=== PATIENT | female | born 1950 | race Caucasian/White ===

== ENCOUNTER 2020-03-26 01:09 | Emergency (ER) | payer MEDICARE, OTHER ==
[~2020-03-26] VITALS: Ht 160 cm; Wt 65.7 kg
[2020-03-26] MEDS ORDERED: LACTATED RINGERS 1,000 ML IV ONE (01:27)
[2020-03-26] MEDS ORDERED: ANTACID SUSP 30 ML UDC (MYLANTA) PO ONE (01:30)
[2020-03-26] MEDS ORDERED: ONDANSETRON 4 MG/2 ML (SDV) Z0FRAN IVP ONE (01:30)
[2020-03-26] MEDS ORDERED: FAMOTIDINE 20MG/2ML IV (PEPCID) IVP ONE (01:30)
[2020-03-26] MEDS ORDERED: LIDOCAINE 2% VISCOUS 15 ML UDC PO ONE (01:30)
[2020-03-26 01:39] LABS: BASOPHILS % (AUTO) 0 % (0-10); EOSINOPHILS % (AUTO) 0 % (0-10); HEMATOCRIT 44 % (35-52); HEMOGLOBIN 14.9 G/DL (11.5-16.0); LYMPHOCYTES # (AUTO) 1.4 X 10^3 (1.0-4.0); LYMPHOCYTES % (AUTO) 15 % (12-44); MEAN CORPUSCULAR HEMOGLOBIN 30 PG (25-34); MEAN CORPUSCULAR HGB CONC 34 G/DL (32-36); MEAN CORPUSCULAR VOLUME 88 FL (80-99); MEAN PLATELET VOLUME 10.3 FL (7.4-10.4); MONOCYTES # (AUTO) 0.4 X 10^3 (0.0-1.0); MONOCYTES % (AUTO) 4 % (0-12); NEUTROPHILS # (AUTO) 7.5 X 10^3 (1.8-7.8); NEUTROPHILS % (AUTO) 81 % (42-75); PLATELET COUNT 307 10^3/uL (130-400); RED CELL DISTRIBUTION WIDTH 13.5 % (10.0-14.5); WHITE BLOOD COUNT 9.3 10^3/uL (4.3-11.0)
[2020-03-26 01:52] LABS: ALBUMIN 4.5 GM/DL (3.2-4.5); POTASSIUM 3.9 MMOL/L (3.6-5.0)
[2020-03-26 01:53] LABS: CALCIUM 10.7 MG/DL (8.5-10.1)
[2020-03-26 01:54] LABS: TOTAL PROTEIN 8.5 GM/DL (6.4-8.2)
[2020-03-26 01:56] LABS: BILIRUBIN,TOTAL 0.6 MG/DL (0.1-1.0)
[2020-03-26 01:58] LABS: CREATININE SERUM 1.14 MG/DL (0.60-1.30)
[2020-03-26] MEDS ORDERED: NS IV 1000 ML 1,000 ML IV SCH (02:31)
[2020-03-26 03:32] LABS: BILIRUBIN,URINE NEGATIVE (NEGATIVE); COLOR,URINE YELLOW; GLUCOSE, URINE (UA) 1+ (NEGATIVE); KETONES,URINE 1+ (NEGATIVE); LEUKOCYTE ESTERASE ,URINE TRACE (NEGATIVE); NITRITE,URINE NEGATIVE (NEGATIVE); PH,URINE 7.5 (5-9); PROTEIN,URINE TRACE (NEGATIVE)
[2020-03-26 03:42] LABS: AMORPHOUS SEDIMENT,UR LARGE AMOR PHOSPHATE /LPF; BACTERIA,URINE NEGATIVE /HPF; CLARITY,URINE SL CLOUDY; WBC,URINE RARE /HPF
[2020-03-26] MEDS ORDERED: ONDA4TAB11 SL (03:56)
--- NOTE | 2020-03-26 03:57 | ED Abdominal Pain ---
General Chief Complaint: Abdominal/GI Problems Stated Complaint: N/V, ABD PAIN Sepsis Screen: No Definite Risk Source of Information: Patient Exam Limitations: No Limitations History of Present Illness Date Seen by Provider: March 26, 2020 Time Seen by Provider: 01:25 Initial Comments This 70-year-old woman presents to the emergency room with complaints of epigastric pain and vomiting. She vomited numerous times at home starting in the afternoon. She has not tried eat or drink since 19:00. She denies any fever. She had a normal bowel movement in the morning. She denies any constipation or diarrhea. Allergies and Home Medications Allergies Coded Allergies: No Known Drug Allergies (Unverified , 03/26/20) Home Medications Ondansetron 4 Mg Tab.rapdis, 4 MG SL Q4H PRN for NAUSEA/VOMITING Prescribed by: DIANE MARTINO on 03/26/20 0356 Patient Home Medication List Home Medication List Reviewed: Yes Review of Systems Review of Systems Constitutional: no symptoms reported EENTM: No Symptoms Reported Respiratory: No Symptoms Reported Cardiovascular: No Symptoms Reported Gastrointestinal: See HPI Genitourinary: No Symptoms Reported Musculoskeletal: no symptoms reported Skin: no symptoms reported Psychiatric/Neurological: No Symptoms Reported Endocrine: No Symptoms Reported Hematologic/Lymphatic: No Symptoms Reported Past Snjjors-Dfhmib-Ivvbsi Hx Past Med/Social Hx: Reviewed Nursing Past Med/Soc Hx Patient Social History Alcohol Use: Denies Use Recreational Drug Use: No Smoking Status: Never a Smoker Recent Foreign Travel: No Contact w/Someone Who Travel: No Recent Infectious Disease Expo: No Recent Hopitalizations: No Physical Abuse: No Sexual Abuse: No Mistreated: No Fear: No Immunizations Up To Date PED Vaccines UTD: Yes Seasonal Allergies Seasonal Allergies: No Past Medical History Surgeries: Yes Orthopedic, Tonsillectomy Respiratory: No Cardiac: No 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 oz. 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, no motor/sensory deficits, alert, normal mood/affect, oriented x 3 Skin: normal color, warm/dry Progress/Results/Core Measures Results/Orders Lab Results Laboratory Tests Test 03/26/20 01:31 03/26/20 03:23 Range/Units White Blood Count 9.3 4.3-11.0 10^3/uL Red Blood Count 5.04 4.35-5.85 10^6/uL Hemoglobin 14.9 11.5-16.0 G/DL Hematocrit 44 35-52 % Mean Corpuscular Volume 88 80-99 FL Mean Corpuscular Hemoglobin 30 25-34 PG Mean Corpuscular Hemoglobin Concent 34 32-36 G/DL Red Cell Distribution Width 13.5 10.0-14.5 % Platelet Count 307 130-400 10^3/uL Mean Platelet Volume 10.3 7.4-10.4 FL Neutrophils (%) (Auto) 81 H 42-75 % Lymphocytes (%) (Auto) 15 12-44 % Monocytes (%) (Auto) 4 0-12 % Eosinophils (%) (Auto) 0 0-10 % Basophils (%) (Auto) 0 0-10 % Neutrophils # (Auto) 7.5 1.8-7.8 X 10^3 Lymphocytes # (Auto) 1.4 1.0-4.0 X 10^3 Monocytes # (Auto) 0.4 0.0-1.0 X 10^3 Eosinophils # (Auto) 0.0 0.0-0.3 10^3/uL Basophils # (Auto) 0.0 0.0-0.1 10^3/uL Sodium Level 138 135-145 MMOL/L Potassium Level 3.9 3.6-5.0 MMOL/L Chloride Level 101 98-107 MMOL/L Carbon Dioxide Level 21 21-32 MMOL/L Anion Gap 16 H 5-14 MMOL/L Blood Urea Nitrogen 16 7-18 MG/DL Creatinine 1.14 0.60-1.30 MG/DL Estimat Glomerular Filtration Rate 47 BUN/Creatinine Ratio 14 Glucose Level 215 H 70-105 MG/DL Calcium Level 10.7 H 8.5-10.1 MG/DL Corrected Calcium 10.3 H 8.5-10.1 MG/DL Total Bilirubin 0.6 0.1-1.0 MG/DL Aspartate Amino Transf (AST/SGOT) 21 5-34 U/L Alanine Aminotransferase (ALT/SGPT) 21 0-55 U/L Alkaline Phosphatase 93 40-136 U/L C-Reactive Protein High Sensitivity 0.23 0.00-0.50 MG/DL Total Protein 8.5 H 6.4-8.2 GM/DL Albumin 4.5 3.2-4.5 GM/DL Lipase 23 8-78 U/L Urine Color YELLOW Urine Clarity SL CLOUDY Urine pH 7.5 5-9 Urine Specific [place] 1.020 1.016-1.022 Urine Protein TRACE H NEGATIVE Urine Glucose (UA) 1+ H NEGATIVE Urine Ketones 1+ H NEGATIVE Urine Nitrite NEGATIVE NEGATIVE Urine Bilirubin NEGATIVE NEGATIVE Urine Urobilinogen 1.0 < = 1.0 MG/DL Urine Leukocyte Esterase TRACE H NEGATIVE Urine RBC (Auto) NEGATIVE NEGATIVE Urine RBC NONE /HPF Urine WBC RARE /HPF Urine Squamous Epithelial Cells 5-10 /HPF Urine Crystals PRESENT H /LPF Urine Amorphous Sediment LARGE DENITA PHOSPHATE H /LPF Urine Bacteria NEGATIVE /HPF Urine Casts NONE /LPF Urine Mucus MODERATE H /LPF Urine Culture Indicated NO My Orders Orders - DIANE WILKINSON MD Ed Iv/Invasive Line Start (03/26/20 01:27) Lactated Ringers (Lr 1000 Ml Iv Solution (03/26/20:27) Cbc With Automated Diff (03/26/20:27) Comprehensive Metabolic Panel (03/26/20:) Hs C Reactive Protein (03/26/20:27) Lipase (03/26/20:27) Ua Culture If Indicated (03/26/20:27) Ondansetron Injection (Zofran Injectio (03/26/20 01:30) Famotidine Injection (Pepcid Injection) (03/26/20 01:30) Lidocaine 2% Viscous 15 Ml (Xylocaine Vi (03/26/20 01:30) Antacid Suspension (Mylanta Suspension (03/26/20 01:30) Ns Iv 1000 Ml (Sodium Chloride 0.9%) (03/26/20 02:31) Rx-Ondansetron Po (Rx-Zofran Po) (03/26/20 04:27) Medications Given in ED Current Medications Medications Dose Ordered Sig/Kemal Route Start Time Stop Time Status Last Admin Dose Admin Al Hydrox/Mg Hydrox/Simethicone 30 ml ONCE ONCE PO 03/26/20 01:30 03/26/20 01:31 DC 03/26/20 01:41 30 ML Famotidine 20 mg ONCE ONCE IVP 03/26/20 01:30 03/26/20 01:31 DC 03/26/20 01:41 20 MG Lactated Ringer's 1,000 ml @ 0 mls/hr Q0M ONCE IV 03/26/20 01:27 03/26/20 01:30 DC 03/26/20 01:41 1,000 MLS/HR Lidocaine HCl 15 ml ONCE ONCE PO 03/26/20 01:30 03/26/20 01:31 DC 03/26/20 01:41 15 ML Ondansetron HCl 8 mg ONCE ONCE IVP 03/26/20 01:30 03/26/20 01:31 DC 03/26/20 01:41 8 MG Vital Signs/I&O 03/26/20 03/26/20 01:31 04:08 Temp 35.4 Pulse 97 84 Resp 20 18 B/P (MAP) 144/86 (105) 147/78 (105) Pulse Ox 99 98 Blood Pressure Mean: 105 Progress Progress Note : Progress Note Patient was treated with Zofran, Pepcid, and 2 L of IV fluid. This was followed by GI cocktail. Her symptoms nearly resolved. Lab workup was unremarkable except for hyperglycemia. This was discussed with the patient and further screening for diabetes was recommended. See discharge instructions. Patient did vomit in the waiting room after discharge despite improvement in symptoms prior to that. She was sent home with a take-home packet of Zofran. Departure Impression Primary Impression: Epigastric pain Additional Impressions: Nausea and vomiting Qualified Codes: R11.2 - Nausea with vomiting, unspecified Hyperglycemia Disposition: HOME, SELF-CARE Condition: Improved Departure-Patient Inst. Decision time for Depature: 03:54 Referrals: CHICO PENA MD (PCP/Family) Primary Care Physician Patient Instructions: Acute Abdomen (Belly Pain), Adult (DC) Add. Discharge Instructions: Adhere to a noncarbonated clear liquid diet for the next 24 hours. Use Zofran (ondansetron) as prescribed for nausea and vomiting. Take an antacid medication such as Pepcid (famotidine) 20 mg twice daily or omeprazole 20 mg daily for the next 1-2 weeks. Your blood sugar was elevated today. Eat a low carbohydrate, low sugar diet until you aren't able to have further screening with Dr. Pena. When you resume eating solid foods, start with bland foods and gradually advance your diet as tolerated. Avoid foods that irritate your stomach as well as fatty or greasy foods. Return to the emergency room if you have worsening symptoms despite following these measures. All discharge instructions reviewed with patient and/or family. Voiced understanding. Scripts Ondansetron (Ondansetron Odt) 4 Mg Tab.rapdis 4 MG SL Q4H PRN for NAUSEA/VOMITING, #10 TAB Prov: DIANE WILKINSON MD 03/26/20 Copy Copies To 1: CHICO PENA MD, JOSHUA T MD March 26, 2020 03:57
[2020-03-26 04:08] VITALS: BP 147/78
[2020-03-26] MEDS ORDERED: RX-ONDANSETRON 4 MG ODT (ZOFRAN) PPK #4 SL STA (04:27)
--- NOTE | 2020-03-26 04:35 | NUR ---
SPOUSE OF PATIENT CAME BACK TO ER REQUESTING A NEW PRINT OUT OF DISCHARGE PAPERWORK BECAUSE PATIENT HAD VOMITED ON HER PAPERWORK ON HER WAY HOME. DR MARTINO INFORMED OF PATIENT CONDITION AND ORDER PLACED FOR TAKE HOME ZOFRAN. SPOUSE INFORMED OF ADDITIONAL COST FOR TAKE HOME MEDICATION, VERBALIZED UNDERSTANDING.
== END 2020-03-26 04:08 | disposition home or self-care (01) ==
LOC: EDUNIT# 01:09 → ER 01:12
DX: R10.13 Epigastric pain (principal); R11.2 Nausea with vomiting, unspecified; R73.9 Hyperglycemia, unspecified
CPT/HCPCS: 36415; 80053; 81000; 83690; 85025; 86141

== ENCOUNTER 2020-03-27 18:05 | Inpatient (IN) | payer MEDICARE ==
[~2020-03-27] VITALS: Ht 160 cm; Wt 70.4 kg
[~2020-03-27 18:05] MED LIST: ONDA4TAB11 SL
[2020-03-27] MEDS: NS IV 1000 ML 1,000 ML IV SCH ×4 (18:35→23:40)
--- NOTE | 2020-03-27 18:35 | ED Abdominal Pain ---
General Stated Complaint: STOMACH PAIN Source of Information: Patient Exam Limitations: No Limitations History of Present Illness Date Seen by Provider: March 27, 2020 Time Seen by Provider: 18:31 Initial Comments 70-year-old female who presents to emergency room with complaints of lower abdominal pain. She was seen and evaluated yesterday in the emergency room for nausea vomiting and abdominal pain that was resolved with a GI cocktail, IV fluids, Zofran. She reports that for the most part the nausea and vomiting has resolved but she continues to have lower abdominal pain. She is concerned that she might be in pain just due to the severe vomiting that she experienced. Timing/Duration: 1-2 Days Severity/Quality: Cramping Location: RLQ, LLQ Associated Symptoms: Nausea/Vomiting Allergies and Home Medications Allergies Coded Allergies: No Known Drug Allergies (Unverified , 03/26/20) Home Medications Ondansetron 4 Mg Tab.rapdis, 4 MG SL Q4H PRN for NAUSEA/VOMITING Prescribed by: DIANE MARTINO on 03/26/20 0356 Patient Home Medication List Home Medication List Reviewed: Yes Review of Systems Review of Systems Constitutional: see HPI; No chills, No fever Gastrointestinal: See HPI, Abdominal Pain All Other Systems Reviewed Negative Unless Noted: Yes Past Sgvkdpd-Rgjasp-Ejqnlz Hx Past Med/Social Hx: Reviewed Nursing Past Med/Soc Hx Patient Social History Recent Foreign Travel: No Contact w/Someone Who Travel: No Recent Hopitalizations: No Immunizations Up To Date PED Vaccines UTD: Yes Seasonal Allergies Seasonal Allergies: No Past Medical History Surgeries: Yes Orthopedic, Tonsillectomy Respiratory: No Cardiac: No 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 oz. kg; 25.00 BMI Method: General Appearance: WD/WN, no apparent distress Respiratory: chest non-tender, lungs clear, normal breath sounds, no respiratory distress, no accessory muscle use Cardiovascular: normal peripheral pulses, regular rate, rhythm, no edema, no gallop, no JVD, no murmur Gastrointestinal: normal bowel sounds, soft, no organomegaly, no pulsatile mass, tenderness (right and left lower quadrant tenderness) Extremities: normal capillary refill Neurologic/Psychiatric: alert, normal mood/affect, oriented x 3 Skin: normal color, warm/dry Progress/Results/Core Measures Results/Orders Lab Results Laboratory Tests Test 03/27/20 18:25 Range/Units White Blood Count 10.0 4.3-11.0 10^3/uL Red Blood Count 5.05 4.35-5.85 10^6/uL Hemoglobin 15.0 11.5-16.0 G/DL Hematocrit 45 35-52 % Mean Corpuscular Volume 90 80-99 FL Mean Corpuscular Hemoglobin 30 25-34 PG Mean Corpuscular Hemoglobin Concent 33 32-36 G/DL Red Cell Distribution Width 14.2 10.0-14.5 % Platelet Count 263 130-400 10^3/uL Mean Platelet Volume 10.7 H 7.4-10.4 FL Neutrophils (%) (Auto) 87 H 42-75 % Lymphocytes (%) (Auto) 8 L 12-44 % Monocytes (%) (Auto) 4 0-12 % Eosinophils (%) (Auto) 0 0-10 % Basophils (%) (Auto) 0 0-10 % Neutrophils # (Auto) 8.7 H 1.8-7.8 X 10^3 Lymphocytes # (Auto) 0.8 L 1.0-4.0 X 10^3 Monocytes # (Auto) 0.4 0.0-1.0 X 10^3 Eosinophils # (Auto) 0.0 0.0-0.3 10^3/uL Basophils # (Auto) 0.0 0.0-0.1 10^3/uL Sodium Level 137 135-145 MMOL/L Potassium Level 3.4 L 3.6-5.0 MMOL/L Chloride Level 100 98-107 MMOL/L Carbon Dioxide Level 22 21-32 MMOL/L Anion Gap 15 H 5-14 MMOL/L Blood Urea Nitrogen 21 H 7-18 MG/DL Creatinine 1.10 0.60-1.30 MG/DL Estimat Glomerular Filtration Rate 49 BUN/Creatinine Ratio 19 Glucose Level 184 H 70-105 MG/DL Calcium Level 9.9 8.5-10.1 MG/DL Corrected Calcium 10.0 8.5-10.1 MG/DL Total Bilirubin 1.1 H 0.1-1.0 MG/DL Aspartate Amino Transf (AST/SGOT) 20 5-34 U/L Alanine Aminotransferase (ALT/SGPT) 23 0-55 U/L Alkaline Phosphatase 78 40-136 U/L Total Protein 7.7 6.4-8.2 GM/DL Albumin 3.9 3.2-4.5 GM/DL Amylase Level 22 L 25-125 U/L Lipase 6 L 8-78 U/L My Orders Orders - IRASEMA AMBROSIO Comprehensive Metabolic Panel (03/27/20 18:11) Lipase (03/27/20 18:11) Amylase (03/27/20 18:11) Ua Culture If Indicated (03/27/20 18:11) Ed Iv/Invasive Line Start (03/27/20 18:11) Cbc With Automated Diff (03/27/20 18:11) Ns Iv 1000 Ml (Sodium Chloride 0.9%) (03/27/20 18:30) Ct Abdomen/Pelvis Wo (03/27/20 19:31) Ns Iv 1000 Ml (Sodium Chloride 0.9%) (03/27/20 19:45) Progress Progress Note : Time: 20:15 Progress Note I have seen and evaluated the patient. I've informed her of her laboratory and imaging studies. I've discussed the case with Dr. Chatman at this time and he recommends having the patient be nothing by mouth, NG tube placement, and small bowel follow-through tomorrow. He wants the patient admitted to medical and he will consult. I discussed the case with Dr. Ansari he agrees and recommends having when necessary fentanyl and Zofran. Patient agrees with plan of care. Departure Communication (Admissions) Time/Spoke to Admitting Phy: 20:24 Dr. Ansari Time/Spoke to Consulting Phy: 20:15 Dr. Chatman Impression Primary Impression: Small bowel obstruction Disposition: ADMITTED INPATIENT Condition: Stable Admissions Decision to Admit Reason: Admit from ER (General) Decision to Admit/Date: March 27, 2020 Time/Decision to Admit Time: 20:39 Departure-Patient Inst. Referrals: CHICO KINNEY MD (PCP/Family) Primary Care Physician IRASEMA AMBROSIO March 27, 2020 18:35
[2020-03-27 19:09] LABS: BASOPHILS % (AUTO) 0 % (0-10); EOSINOPHILS % (AUTO) 0 % (0-10); HEMATOCRIT 45 % (35-52); LYMPHOCYTES # (AUTO) 0.8 X 10^3 (1.0-4.0); LYMPHOCYTES % (AUTO) 8 % (12-44); MEAN CORPUSCULAR HEMOGLOBIN 30 PG (25-34); MEAN CORPUSCULAR HGB CONC 33 G/DL (32-36); MEAN CORPUSCULAR VOLUME 90 FL (80-99); MEAN PLATELET VOLUME 10.7 FL (7.4-10.4); MONOCYTES # (AUTO) 0.4 X 10^3 (0.0-1.0); MONOCYTES % (AUTO) 4 % (0-12); NEUTROPHILS # (AUTO) 8.7 X 10^3 (1.8-7.8); NEUTROPHILS % (AUTO) 87 % (42-75); PLATELET COUNT 263 10^3/uL (130-400); RED CELL DISTRIBUTION WIDTH 14.2 % (10.0-14.5)
--- OUTSIDE RECORDS SUMMARY | 2020-03-27 19:14 | XMS REPORT | Continuity of Care Document ---
Author Organization Unknown Address Unknown Phone Unavailable Allergies Active Description Code Type Severity Reaction Onset Reported/Identified Relationship to Patient Clinical Status Yes No Known Drug Allergies [id number] Drug Allergy Unknown N/A 03/26/2020 Medications There is no data. Problems There is no data. Procedures There is no data. Results Test Result Range Complete blood count (CBC) with automate d white blood cell (WBC) differential - 03/26/20 01:31 Blood leukocytes automated count (number/volume) 9.3 10*3/uL 4.3-11.0 Blood erythrocytes automated count (number/volume) 5.04 10*6/uL 4.35-5.85 Venous blood hemoglobin measurement (mass/volume) 14.9 g/dL 11.5-16.0 Blood hematocrit (volume fraction) 44 % 35-52 Automated erythrocyte mean corpuscular volume 88 [ foz_us] 80-99 Automated erythrocyte mean corpuscular h emoglobin (mass per erythrocyte) 30 pg 25-34 Automated erythrocyte mean corpuscular h emoglobin concentration measurement (mass/volume) 34 g/dL 32-36 Automated erythrocyte distribution width ratio 13. 5 % 10.0- 14.5 Automated blood platelet count (count/volume) 307 10*3/uL 130-400 Automated blood platelet mean volume measurement 10.3 [foz_us] 7.4-10.4 Automated blood neutrophils/100 leukocytes 81 % 42-75 Automated blood lymphocytes/100 leukocytes 15 % 12-44 Blood monocytes/100 leukocytes 4 % 0-12 Automated blood eosinophils/100 leukocytes 0 % 0-10 Automated blood basophils/100 leukocytes 0 % 0-10 Blood neutrophils automated count (number/volume) 7.5 10*3 1.8-7.8 Blood lymphocytes automated count (number/volume) 1.4 10*3 1.0-4.0 Blood monocytes automated count (number/volume) 0. 4 10*3 0.0-1.0 Automated eosinophil count 0.0 10*3/uL 0 .0-0.3 Automated blood basophil count (count/volume) 0.0 10*3/uL 0.0-0.1 Comprehensive metabolic panel - 03/26/20 01:31 Serum or plasma sodium measurement (moles/volume) 138 mmol/L 135-145 Serum or plasma potassium measurement (moles/volume) 3.9 mmol/L 3.6-5.0 Serum or plasma chloride measurement (moles/volume) 101 mmol/L 98-107 Carbon dioxide 21 mmol/L 21-32 Serum or plasma anion gap determination (moles/volume) 16 mmol/L 5-14 Serum or plasma urea nitrogen measurement (mass/volume ) 16 mg/dL 7-18 Serum or plasma creatinine measurement (mass/volume) 1.14 mg/dL 0.60-1.30 Serum or plasma urea nitrogen/creatinine mass ratio 14 NRG Serum or plasma creatinine measurement w ith calculation of estimated glomerular filtration rate 47 NRG Serum or plasma glucose measurement (mass/volume) 215 mg/dL 70-105 Serum or plasma calcium measurement (mass/volume) 10.7 mg/dL 8.5-10.1 Serum or plasma total bilirubin measurement (mass/volu me) 0.6 mg/dL 0.1-1.0 Serum or plasma alkaline phosphatase norman surement (enzymatic activity/volume) 93 U/L 40-136 Serum or plasma aspartate aminotransfera se measurement (enzymatic activity/volume) 21 U/L 5-34 Serum or plasma alanine aminotransferase measurement (enzymatic activity/volume) 21 U/L 0-55 Serum or plasma protein measurement (mass/volume) 8.5 g/dL 6.4-8.2 Serum or plasma albumin measurement (mass/volume) 4.5 g/dL 3.2-4.5 CALCIUM CORRECTED 10.3 mg/dL 8.5-10.1 Serum or plasma C reactive protein measu rement (mass/volume) - 03/26/20 01:31 Serum or plasma C reactive protein measurement (mass/v olume) 0.23 mg/dL 0.00-0.50 Lipase - 03/26/20 01:31 Lipase 23 U/L 8-78 Serum or plasma C reactive protein measu rement (mass/volume) - 03/26/20 01:31 Serum or plasma C reactive protein measurement (mass/v olume) 0.23 mg/dL 0.00-0.50 Complete urinalysis with reflex to cultu re - 03/26/20 03:23 Urine color determination YELLOW NRG Urine clarity determination SL CLOUDY N RG Urine pH measurement by test strip 7.5 5-9 Specific gravity of urine by test strip 1.020 1.016-1.022 Urine protein assay by test strip, semi-quantitative TRACE NEGATIVE Urine glucose detection by automated test strip 1+ NEGATIVE Erythrocytes detection in urine sediment by light micr oscopy NEGATIVE NEGATIVE Urine ketones detection by automated test strip 1+ NEGATIVE Urine nitrite detection by test strip NEGATIVE NEGATIVE Urine total bilirubin detection by test strip NEGA TIVE NEGATIVE Urine urobilinogen measurement by automated test strip (mass/volume) 1.0 mg/dL < = 1.0 Urine leukocyte esterase detection by dipstick TRA CE NEGATIVE Automated urine sediment erythrocyte cou nt by microscopy (number/high power field) NONE NRG Automated urine sediment leukocyte count by microscopy (number/high power field) RARE NRG Bacteria detection in urine sediment by light microsco py NEGATIVE NRG Squamous epithelial cells detection in u rine sediment by light microscopy 5-10 NRG Crystals detection in urine sediment by light microsco py PRESENT NRG Casts detection in urine sediment by light microscopy NONE NRG Mucus detection in urine sediment by light microscopy MODERATE NRG Complete urinalysis with reflex to culture NO NRG Amorphous sediment detection in urine sediment by ligh t microscopy LARGE DENITA PHOSPHATE NRG Encounters ACCT No. Visit Date/Time Discharge Status Pt. Type Provider Facility Loc./Unit Complaint [id number] 03/26/2020 01:12:00 020 04:08:00 DIS Emergency MINH CABRERA, DIANE Crook [facility] ER N/V, ABD PAIN [id number] 03/27/2020 18:06:[address] Emergency IRASEMA AMBROSIO [facility] ER STOMACH PAIN
[2020-03-27 19:16] LABS: ALBUMIN 3.9 GM/DL (3.2-4.5); POTASSIUM 3.4 MMOL/L (3.6-5.0)
[2020-03-27 19:18] LABS: CALCIUM 9.9 MG/DL (8.5-10.1)
[2020-03-27 19:19] LABS: TOTAL PROTEIN 7.7 GM/DL (6.4-8.2)
[2020-03-27 19:21] LABS: BILIRUBIN,TOTAL 1.1 MG/DL (0.1-1.0)
[2020-03-27 19:22] LABS: CREATININE SERUM 1.1 MG/DL (0.60-1.30)
[2020-03-27] MEDS ORDERED: NS IV 1000 ML 1,000 ML IV SCH (19:45)
--- NOTE | 2020-03-27 20:03 | Diagnostic Imaging Report ---
PROCEDURE: CT abdomen and pelvis without contrast. TECHNIQUE: Multiple contiguous axial images were obtained through the abdomen and pelvis without the use of intravenous contrast. Auto Exposure Controls were utilized during the CT exam to meet ALARA standards for radiation dose reduction. INDICATION: Abdomen and pelvic pain. Nausea and vomiting. History of hiatal hernia. COMPARISON: None FINDINGS: There is dependent atelectasis in the lung bases. The heart is normal in size. The liver demonstrates a small amount of air which appears to be pneumobilia. The gallbladder is not seen. The spleen is unremarkable. The pancreas appears normal. The adrenal glands appear normal. The kidneys demonstrate no hydronephrosis or obstructing calculi. The small bowel is distended, measuring up to 4 cm. The distal ileum is decompressed however. There appears to be a transition point in the pelvis (image 32 series 601). There is a small amount of free fluid in the abdomen and pelvis. The colon is nearly completely decompressed. There are advanced degenerative changes in the spine with no acute fracture seen. No free air is seen. IMPRESSION: 1. Small bowel distention concerning for high-grade obstruction with transition point suspected in the pelvis. 2. Small amount of ascites. No free air is seen. 3. Small amount of pneumobilia. Dictated by: Dictated on workstation # [id number]
[2020-03-27] MEDS ORDERED: HURRICAINE EXT TUBE (BENZOCAINE) ONE (21:04)
--- OUTSIDE RECORDS SUMMARY | 2020-03-27 21:38 | XMS REPORT | Continuity of Care Document ---
Author Organization Unknown Address Unknown Phone Unavailable Allergies Active Description Code Type Severity Reaction Onset Reported/Identified Relationship to Patient Clinical Status Yes No Known Drug Allergies [id number] Drug Allergy Unknown N/A 03/26/2020 Medications There [...] Status Pt. Type Provider Facility Loc./Unit Complaint [id number] 03/26/2020 01:12:00 020 04:08:00 DIS Emergency MINH CABRERA, DIANE Crook [facility] ER N/V, ABD PAIN [id number] 03/27/2020 21:00:[address] Inpatient FIGUEROA CABRERA, DESIREE Zepeda [facility] 4TH SMALL BOWEL OBSTRUCTION
[2020-03-27] MEDS ORDERED: HURRICAINE EXT TUBE (BENZOCAINE) XX ONE (21:45)
--- NOTE | 2020-03-27 21:50 | NUR ---
DOTTIE GRAHAM admitted to room 416-1, with an admitting diagnosis of small bowel obstruction, on 03/27/20 from ER via , accompanied by sTAFF. DOTTIE GRAHAM introduced to surroundings, call light, bed controls, phone, TV, temperature control, lights, meal times, smoking policy, visitor policy, side rail policy, bathrooms and showers. Patient Rights given to patient in the handbook. DOTTIE GRAHAM verbalizes understanding that [facility] is not responsible for the loss or damage to any personal effects or valuables that are kept in the patients possession during their hospitalization.
[2020-03-27 21:58] VITALS: BP 127/81
[2020-03-27] MEDS ORDERED: ONDANSETRON 4 MG/2 ML (SDV) Z0FRAN IV PRN (23:15)
[2020-03-28 00:29] VITALS: BP 126/76
[2020-03-28 04:00] VITALS: BP 135/78
[2020-03-28 04:55] LABS: BASOPHILS % (AUTO) 0 % (0-10); EOSINOPHILS % (AUTO) 0 % (0-10); HEMATOCRIT 41 % (35-52); HEMOGLOBIN 13.4 G/DL (11.5-16.0); LYMPHOCYTES # (AUTO) 0.7 X 10^3 (1.0-4.0); LYMPHOCYTES % (AUTO) 8 % (12-44); MEAN CORPUSCULAR HEMOGLOBIN 30 PG (25-34); MEAN CORPUSCULAR HGB CONC 33 G/DL (32-36); MEAN CORPUSCULAR VOLUME 91 FL (80-99); MEAN PLATELET VOLUME 10.7 FL (7.4-10.4); MONOCYTES # (AUTO) 0.4 X 10^3 (0.0-1.0); MONOCYTES % (AUTO) 5 % (0-12); NEUTROPHILS # (AUTO) 7.6 X 10^3 (1.8-7.8); NEUTROPHILS % (AUTO) 87 % (42-75); PLATELET COUNT 210 10^3/uL (130-400); RED CELL DISTRIBUTION WIDTH 14.1 % (10.0-14.5); WHITE BLOOD COUNT 8.7 10^3/uL (4.3-11.0)
[2020-03-28 05:06] LABS: ALBUMIN 3.3 GM/DL (3.2-4.5)
[2020-03-28 05:07] LABS: CHLORIDE 105 MMOL/L (98-107); POTASSIUM 3.4 MMOL/L (3.6-5.0); SODIUM 140 MMOL/L (135-145)
[2020-03-28 05:08] LABS: CALCIUM 9.2 MG/DL (8.5-10.1)
[2020-03-28 05:09] LABS: GLUCOSE 126 MG/DL (70-105); TOTAL PROTEIN 6.6 GM/DL (6.4-8.2)
[2020-03-28 05:10] LABS: CARBON DIOXIDE 23 MMOL/L (21-32)
[2020-03-28 05:11] LABS: BILIRUBIN,TOTAL 1.2 MG/DL (0.1-1.0)
[2020-03-28 05:12] LABS: ALKALINE PHOSPHATASE 71 U/L (40-136)
[2020-03-28 05:13] LABS: CREATININE SERUM 0.84 MG/DL (0.60-1.30); GFR ESTIMATED > 60
[2020-03-28 05:14] LABS: BUN/CREATININE RATIO 23
[2020-03-28 05:15] LABS: ALANINE AMINOTRANSFERASE 16 U/L (0-55)
[2020-03-28 07:59] VITALS: BP 145/81
[2020-03-28] MEDS: NS IV 1000 ML 1,000 ML IV SCH ×2 (08:23→19:24)
[2020-03-28] MEDS ORDERED: ASPI325T32 PO (09:46)
--- NOTE | 2020-03-28 09:49 | NUR ---
SPOKE WITH THE PT TO COMPLETE THE MED REC [place] [facility] [place] HOWEVER THE PT DID NOT PICK IT UP AND FELT LIKE BY THE TIME SHE GOT HOME SHE NO LONGER NEEDED IT (I REMOVED THIS FROM THE MED REC) PT DENIES TAKING ANY OTHER MEDICATIONS AND SAYS SHE TAKES ASPIRIN 325MG PRN PAIN/HEADACHE
--- NOTE | 2020-03-28 10:00 | NUR ---
PT WENT WITH RADIOLOGY FOR SMALL BOWEL FOLLOW THROUGH
--- NOTE | 2020-03-28 10:02 | History & Physical-Hospitalist ---
History of Present Illness HPI/Chief Complaint Pt is a 70yoCF with no known PMH who presented to the ER due to abdominal pain. She sates her symptoms started on 03/26. Her last BM was on 03/25. She was in the ER on 03/26 as well for nausea and vomiting that she thought was due to her hiatal hernia. Her nausea and vomiting improved but her pain continued so she returned to the ER. CT showed high grade SBO. She was admitted for NGT, pain control, and surgical consult. This morning she reports she is feeling slightly better and pain is under control. She has not had a BM or passed flatus yet. She denies any history of abdominal surgery and has never had a colonoscopy. Source: patient Exam Limitations: no limitations Date Seen 03/28/20 Time Seen by a Provider: 09:58 Attending Physician Angelo Ansari MD PCP Jovanny Pena MD Referring Physician Date of Admission March 27, 2020 at 21:00 Home Medications & Allergies Home Medications Reviewed patient Home Medication Reconciliation performed by pharmacy medication reconciliations irrigation technician and/or nursing. Patients Allergies have been reviewed. Allergies Allergies Coded Allergies No Known Drug Allergies (Unverified03/26/20) Past Abrrzse-Hkafmn-Xopohe Hx Past Med/Social Hx: Reviewed Nursing Past Med/Soc Hx Patient Social History Alcohol Use: Denies Use Recreational Drug Use: No Smoking Status: Never a Smoker Recent Foreign Travel: No Contact w/other who traveled: No Recent Hopitalizations: No Recent Infectious Disease Expo: No Immunizations Up To Date Tetanus Booster (TDap): Unknown Pediatric: Yes Seasonal Allergies Seasonal Allergies: No Past Medical History Surgeries: Orthopedic, Tonsillectomy : No Menopausal History of Blood Disorders: No Family History Reviewed Nursing Family Hx Hypertension 19 MOTHER Myocardial infarction G8 SISTER Review of Systems Constitutional: no symptoms reported EENTM: no symptoms reported Respiratory: no symptoms reported Cardiovascular: no symptoms reported Gastrointestinal: see HPI Musculoskeletal: no symptoms reported Skin: no symptoms reported Psychiatric/Neurological: No Symptoms Reported Physical Exam Physical Exam Vital Signs Vital Signs - First Documented 03/27/20 19:16 Temp 36.5 Pulse 121 Resp 20 B/P (MAP) 152/90 (110) Pulse Ox 96 O2 Delivery Room Air Capillary Refill : Less Than 3 Seconds Height, Weight, BMI Height: '" Weight: lbs. oz. kg; 27.50 BMI Method: General Appearance: No Apparent Distress, WD/WN HEENT: PERRL/EOMI, Moist Mucous Membranes; No Scleral Icterus (L), No Scleral Icterus (R); Other (NGT in place) Neck: Normal Inspection, Supple Respiratory: Lungs Clear, No Accessory Muscle Use, No Respiratory Distress Cardiovascular: Regular Rate, Rhythm, No Murmur Gastrointestinal: Abnormal Bowel Sounds (quiet), Distended (mild); No Guarding; Tenderness (mild, diffuse) Extremity: No Calf Tenderness, No Pedal Edema Neurologic/Psychiatric: Alert, Oriented x3, Normal Mood/Affect Results Results/Procedures Labs Laboratory Tests 03/27/20 18:25 03/28/20 04:23 Patient resulted labs reviewed. Imaging: Reviewed Imaging Report Imaging Date of Exam:03/27/20 CT ABDOMEN/PELVIS WO PROCEDURE: CT abdomen and pelvis without contrast. TECHNIQUE: Multiple contiguous axial images were obtained through the abdomen and pelvis without the use of intravenous contrast. Auto Exposure Controls were utilized during the CT exam to meet ALARA standards for radiation dose reduction. INDICATION: Abdomen and pelvic pain. Nausea and vomiting. History of hiatal hernia. COMPARISON: None FINDINGS: There is dependent atelectasis in the lung bases. The heart is normal in size. The liver demonstrates a small amount of air which appears to be pneumobilia. The gallbladder is not seen. The spleen is unremarkable. The pancreas appears normal. The adrenal glands appear normal. The kidneys demonstrate no hydronephrosis or obstructing calculi. The small bowel is distended, measuring up to 4 cm. The distal ileum is decompressed however. There appears to be a transition point in the pelvis (image 32 series 601). There is a small amount of free fluid in the abdomen and pelvis. The colon is nearly completely decompressed. There are advanced degenerative changes in the spine with no acute fracture seen. No free air is seen. IMPRESSION: 1. Small bowel distention concerning for high-grade obstruction with transition point suspected in the pelvis. 2. Small amount of ascites. No free air is seen. 3. Small amount of pneumobilia. Assessment/Plan Admission Diagnosis SBO Admission Status: Inpatient Order (span 2 midnights) Reason for Inpatient Admission: IV pain control, IV fluids, will take more than two midnights to stabilize for DC Assessment and Plan High grade SBO Continue NGT Pain control Surgery consult Small bowel follow through NPO Await return of bowel function Hypokalemia Replace Hyperglycemia BS 126 this AM, fasting trend Clinical Quality Measures DVT/VTE Risk/Contraindication: Risk Factor Score Per Nursin RFS Level Per Nursing on Admit: 2=Moderate FRAN ESTES MD March 28, 2020 10:02
[2020-03-28] MEDS ORDERED: CATHETER FLUSH 10 ML SYR IV PRN (10:45)
[2020-03-28] MEDS ORDERED: DIATRIZOATE MEGLUM/SODIUM 37% 120 ML (GASTROGRAFIN) NG ONE (10:45)
[2020-03-28 12:00] VITALS: BP 154/85
[2020-03-28] MEDS: POTASSIUM CL 10MEQ/50ML IVPB 50 ML IV SCH (13:31)
--- NOTE | 2020-03-28 14:25 | Consultation - Surgery ---
History of Present Illness History of Present Illness Patient Consulted On(devon/time) 03/28/20 14:19 Date Seen by Provider: March 28, 2020 Time Seen by Provider: 14:20 History of Present Illness Consult requested by Dr. Villalpando for sbo Patient is a 70 year old female who had 3 days of abdominal pain and discomfort. Moderated pain. No radiation. Diffuse. Having nausea and vomiting. [place] it may be hiatal hernia. Not passing flatus or bm. Has NG tube in place. Ct scan reviewed and suggestive of small bowel obstruction. Having sbo follow through being done, demonstratin dilated loops of small bowel and slow transit of constrast. Patient with no previous abdominal surgery. Her abdominal pain is slightly better today, but abdomen distended. Allergies and Home Medications Allergies Coded Allergies: No Known Drug Allergies (Unverified , 03/26/20) Home Medications Aspirin 325 Mg Tablet.dr, 325 MG PO Q8H PRN for PAIN-MILD (1-4), (Reported) Patient Home Medication List Home Medication List Reviewed: Yes Past Vpeuyoj-Evbaed-Bmreto Hx Patient Social History Alcohol Use: Denies Use Recreational Drug Use: No Smoking Status: Never a Smoker Recent Foreign Travel: No Contact w/Someone Who Travel: No Recent Infectious Disease Expo: No Recent Hopitalizations: No Immunizations Up To Date Tetanus Booster (TDap): Unknown PED Vaccines UTD: Yes Seasonal Allergies Seasonal Allergies: No Surgeries History of Surgeries: Yes Surgeries: Orthopedic, Tonsillectomy Respiratory History of Respiratory Disorde: No Cardiovascular History of Cardiac Disorders: No Neurological History of Neurological Disord: No Reproductive System : No TELEVISION CAMERAMAN History: Menopausal Genitourinary History of Genitourinary Disor: No Gastrointestinal History of Gastrointestinal Di: No Musculoskeletal History of Musculoskeletal Dis: Yes (LEFT ANKLE SURG) Endocrine History of Endocrine Disorders: No HEENT History of HEENT Disorders: No Cancer History of Cancer: No Psychosocial History of Psychiatric Problem: No Integumentary History of Skin or Integumenta: No Blood Transfusions History of Blood Disorders: No Reviewed Nursing Assessment Reviewed/Agree w Nursing PMH: Yes Family Medical History Significant Family History: No Pertinent Family Hx Family Medial History: Hypertension 19 MOTHER Myocardial infarction G8 SISTER Review of Systems-General Constitutional: No chills, No diaphoresis EENTM: No hearing loss, No blurred vision, No double vision Respiratory: No cough, No dyspnea on exertion Cardiovascular: No chest pain Gastrointestinal: see HPI, abdominal pain, nausea, vomiting Genitourinary: No decreased output, No discharge Musculoskeletal: No back pain, No gout, No joint pain Skin: No no symptoms reported, No change in color, No change in hair/nails Psychiatric/Neurological: Denies Anxiety, Denies Depressed, Denies Emotional Problems Physical Exam-General Problems Physical Exam Vital Signs Vital Signs - First Documented 03/27/20 19:16 Temp 36.5 Pulse 121 Resp 20 B/P (MAP) 152/90 (110) Pulse Ox 96 O2 Delivery Room Air Capillary Refill : Less Than 3 Seconds General Appearance: no apparent distress HEENT: PERRL/EOMI, normal ENT inspection Neck: non-tender, full range of motion, supple Respiratory: chest non-tender, no respiratory distress Cardiovascular: regular rate, rhythm Gastrointestinal: distended; No guarding, No rebound; tenderness (diffuse, mild) Rectal: deferred Back: no CVA tenderness, no vertebral tenderness Extremities: normal range of motion, non-tender, normal inspection, no pedal edema, no calf tenderness Neurologic/Psychiatric: community leader II-XII nml as tested, no motor/sensory deficits, alert, normal mood/affect, oriented x 3 Skin: normal color, warm/dry Lymphatic: no adenopathy Data Review Labs Laboratory Tests 03/27/20 18:25: White Blood Count 10.0, Red Blood Count 5.05, Hemoglobin 15.0, Hematocrit 45, Mean Corpuscular Volume 90, Mean Corpuscular Hemoglobin 30, Mean Corpuscular Hemoglobin Concent 33, Red Cell Distribution Width 14.2, Platelet Count 263, Mean Platelet Volume 10.7H, Neutrophils (%) (Auto) 87H, Lymphocytes (%) (Auto) 8L, Monocytes (%) (Auto) 4, Eosinophils (%) (Auto) 0, Basophils (%) (Auto) 0, Neutrophils # (Auto) 8.7H, Lymphocytes # (Auto) 0.8L, Monocytes # (Auto) 0.4, Eosinophils # (Auto) 0.0, Basophils # (Auto) 0.0, Sodium Level 137, Potassium Level 3.4L, Chloride Level 100, Carbon Dioxide Level 22, Anion Gap 15H, Blood Urea Nitrogen 21H, Creatinine 1.10, Estimat Glomerular Filtration Rate 49, BUN/Creatinine Ratio 19, Glucose Level 184H, Calcium Level 9.9, Corrected Calcium 10.0, Total Bilirubin 1.1H, Aspartate Amino Transf (AST/SGOT) 20, Alanine Aminotransferase (ALT/SGPT) 23, Alkaline Phosphatase 78, Total Protein 7.7, Albumin 3.9, Amylase Level 22L, Lipase 6L 03/28/20 04:23: White Blood Count 8.7, Red Blood Count 4.54, Hemoglobin 13.4, Hematocrit 41, Mean Corpuscular Volume 91, Mean Corpuscular Hemoglobin 30, Mean Corpuscular Hemoglobin Concent 33, Red Cell Distribution Width 14.1, Platelet Count 210, Mean Platelet Volume 10.7H, Neutrophils (%) (Auto) 87H, Lymphocytes (%) (Auto) 8L, Monocytes (%) (Auto) 5, Eosinophils (%) (Auto) 0, Basophils (%) (Auto) 0, Neutrophils # (Auto) 7.6, Lymphocytes # (Auto) 0.7L, Monocytes # (Auto) 0.4, E osinophils # (Auto) 0.0, Basophils # (Auto) 0.0, Sodium Level 140, Potassium Level 3.4L, Chloride Level 105, Carbon Dioxide Level 23, Anion Gap 12, Blood Urea Nitrogen 19H, Creatinine 0.84, Estimat Glomerular Filtration Rate > 60, BUN/Creatinine Ratio 23, Glucose Level 126H, Calcium Level 9.2, Corrected Calcium 9.8, Total Bilirubin 1.2H, Aspartate Amino Transf (AST/SGOT) 18, Alanine Aminotransferase (ALT/SGPT) 16, Alkaline Phosphatase 71, Total Protein 6.6, Albumin 3.3 Assessment/Plan Assessment/Plan Assessment/Plan abdominal pain diffuse nausea and vomiting small bowel obstruction. ng tube npo iv hydration conservative measures for now awaiting completion of small bowel follow through, but contrast not making through yet if it does not resolve with conservative measures will need to explore abdomen to find cause of obstruction patient understands and agrees with plan. Clinical Quality Measures DVT/VTE Risk/Contraindication: Risk Factor Score Per Nursin RFS Level Per Nursing on Admit: 2=Moderate ADAM WRIGHT DO March 28, 2020 14:24
[2020-03-28 15:37] VITALS: BP 148/78
--- NOTE | 2020-03-28 16:24 | NUR ---
I received a call from pts Mason Liner who requested I facilitate a phone call from pts Dr to pts as he has not felt communicated with. The Mason Liner and I spoke about the heightened anxiety for families during this time and that at times the Dr is awaiting until all the information has been gathered prior to calling families. The Mason Liner understood and would convey this. I passed info onto Cass Gaines RN, Nurse Tandem Mill Operator. I also advised Mason Liner that I would visit w/pt, pt was asleep, will monitor.
[2020-03-28 19:17] VITALS: BP 177/85
[2020-03-28] MEDS ORDERED: ENOXAPARIN 40 MG/0.4 ML (LOVENOX) SYR SC SCH (20:00)
--- NOTE | 2020-03-28 20:14 | NUR ---
DR. WRIGHT NOTIFIED OF PT RETURNING FROM SMALL BOWEL FOLLOW THROUGH, TECH STATED THEIR WAS NO CHANGE SINCE EARLIER PICTURES. NEW ORDERS RECEIVED TO OBTAIN CONSENT FOR EXPLORATORY LAPAROTOMY AND ALL OTHER INDICATED PROCEDURES THAT WILL BE SCHEDULED FOR TOMORROW, ALSO WANTED TO HOLD LOVENOX DOSE. WILL CONTINUE TO MONITOR.
--- NOTE | 2020-03-28 20:47 | Diagnostic Imaging Report ---
HISTORY: Small bowel obstruction COMPARISON: CT from 03/27/2020 FINDINGS: Following oral administration of 50% Gastrografin, serial images of the abdomen were obtained. Postal Delivery Officer images demonstrate distended loops of small bowel. These persist throughout the exam. A safety pin overlies the right upper quadrant. There appears to be an NG tube in place. Contrast passes into the small bowel and is delayed in the small bowel. A 10 hour image does not demonstrate significant contrast seen in the colon. No large collection of free air is seen. There are degenerative changes in the spine. IMPRESSION: 1. Delayed small bowel transit of at least 10 hours with persistent distended small bowel loops, consistent with obstruction. Dictated by: Dictated on workstation # [id number]
[2020-03-29] VITALS (15 sets, daily range): BP systolic 111–158; BP diastolic 2–89
[2020-03-29] MEDS: NS IV 1000 ML 1,000 ML IV SCH ×2 (05:27→17:46)
--- NOTE | 2020-03-29 10:22 | Progress Note - Surgery ---
Subjective Date Seen by a Provider: March 29, 2020 Time Seen by a Provider: 10:17 Subjective/Events-last exam No flatus or bm. Patient still distended. Ng tube in place. Small bowel follow through consistent with obstruction. Denies fever sweats chills shortness of breath or chest pain. Objective Exam Vital Signs Date Time Temp Pulse Resp B/P (MAP) Pulse Ox O2 Delivery O2 Flow Rate FiO2 03/29/20 08:00 96 Room Air 03/29/20 07:30 36.4 97 16 158/75 (102) 96 Room Air 03/29/20 04:00 36.2 92 21 155/81 (105) 97 Room Air 03/29/20 00:23 36.6 100 18 145/73 (97) 95 Room Air 03/28/20 20:18 Room Air 03/28/20 19:17 37.2 114 20 177/85 (115) 96 Room Air 03/28/20 15:37 37.2 97 18 148/78 (101) 95 Room Air 03/28/20 12:00 36.9 99 20 154/85 (108) 97 Room Air I & O 03/29/20 07:00 Intake Total 2000 ml Output Total 1600 ml Balance 400 ml Capillary Refill : Less Than 3 Seconds General Appearance: No Apparent Distress, WD/WN HEENT: PERRL/EOMI, Moist Mucous Membranes; No Scleral Icterus (L), No Scleral Icterus (R); Other (NGT in place) Neck: Normal Inspection, Supple Respiratory: Lungs Clear, No Accessory Muscle Use, No Respiratory Distress Cardiovascular: Regular Rate, Rhythm, No Murmur Gastrointestinal: distended; No guarding, No rebound; tenderness (diffuse, mild) Extremity: No Calf Tenderness, No Pedal Edema Neurologic/Psychiatric: Alert, Oriented x3, Normal Mood/Affect Skin: Normal Color, Warm/Dry Lymphatic: No Adenopathy Assessment/Plan Assessment/Plan Assessment/Plan abdominal pain diffuse nausea and vomiting small bowel obstruction. ng tube npo iv hydration exam and small bowel follow through consistent with small bowel obstruction we discussed risks and benefits of exploratory laparotomy all other indicated procedures to explore abdomen to find cause of obstruction patient understands and agrees with plan. to or today Clinical Quality Measures DVT/VTE Risk/Contraindication: Risk Factor Score Per Nursin RFS Level Per Nursing on Admit: 2=Moderate ADAM WRIGHT DO March 29, 2020 10:22
[2020-03-29] MEDS ORDERED: ceFAZolin INJECTION 1,000 MG in WATER (STERILE) FOR INJECTION 10 ML IV NR (10:30)
--- NOTE | 2020-03-29 10:38 | Progress Note - Hospitalist ---
Subjective HPI/CC On Admission Date Seen by Provider: March 29, 2020 Time Seen by Provider: 10:35 Pt is a 70yoCF with no known PMH who presented to the ER due to abdominal pain. She sates her symptoms started on 03/26. Her last BM was on 03/25. She was in the ER on 03/26 as well for nausea and vomiting that she thought was due to her hiatal hernia. Her nausea and vomiting improved but her pain continued so she returned to the ER. CT showed high grade SBO. She was admitted for NGT, pain control, and surgical consult. This morning she reports she is feeling slightly better and pain is under control. She has not had a BM or passed flatus yet. She denies any history of abdominal surgery and has never had a colonoscopy. Subjective/Events-last exam Pt reports no complaints. No pain. Plan is for OR today. Objective Exam Vital Signs Vital Signs Date Time Temp Pulse Resp B/P (MAP) Pulse Ox O2 Delivery O2 Flow Rate FiO2 03/29/20 08:00 96 Room Air 03/29/20 07:30 36.4 97 16 158/75 (102) Capillary Refill : Less Than 3 Seconds General Appearance: No Apparent Distress, WD/WN Respiratory: Lungs Clear, No Respiratory Distress Cardiovascular: Regular Rate, Rhythm, No Murmur Gastrointestinal: Abnormal Bowel Sounds (absent), Distended (mild) Neurologic/Psychiatric: Alert, Oriented x3 Results/Procedures Lab Patient resulted labs reviewed. Imaging: Reviewed Imaging Report Assessment/Plan Assessment and Plan Assess & Plan/Chief Complaint High grade SBO Continue NGT Pain control Surgery consult Small bowel follow through shows obstruction NPO OR today Hypokalemia Replace IV Hyperglycemia BS 126 this AM,trend Clinical Quality Measures DVT/VTE Risk/Contraindication: Risk Factor Score Per Nursin RFS Level Per Nursing on Admit: 2=Moderate FRAN ESTES MD March 29, 2020 10:38
[2020-03-29] MEDS ORDERED: POTASSIUM CL 10MEQ/50ML IVPB 50 ML IV SCH (10:45)
[2020-03-29] MEDS ORDERED: LIDOCAINE PF 2% 5 ML (XYLOCAINE) VIAL ONE (14:29)
[2020-03-29] MEDS ORDERED: fentaNYL INJECTION 100 MCG/2 ML AMP ONE (14:29)
[2020-03-29] MEDS ORDERED: MIDAZOLAM 2 MG/2 ML (VERSED) VIAL ONE (14:29)
[2020-03-29] MEDS ORDERED: proPOfol 200 MG/20 ML (DIPRIVAN) VIAL IV ONE (14:29)
[2020-03-29] MEDS ORDERED: ROCURONIUM 10 MG/ML 5 ML SYRINGE IV ONE (14:31)
--- NOTE | 2020-03-29 14:33 | NUR ---
Pt taken off floor for procedure via bed.
[2020-03-29] MEDS: LACTATED RINGERS 1,000 ML IV PRN ×2 (14:50→16:03)
[2020-03-29] MEDS ORDERED: ceFAZolin INJECTION 1,000 MG ONE (15:10)
[2020-03-29] MEDS ORDERED: SEVOFLURANE (ULTANE) 15 ML INHAL SOLN ONE ×3 (15:46→15:48)
[2020-03-29] MEDS ORDERED: ONDANSETRON 4 MG/2 ML (SDV) Z0FRAN ONE (15:46)
[2020-03-29] MEDS ORDERED: HYDROmorphone 2 MG/ML VIAL (DILAUDID) ONE (15:59)
[2020-03-29] MEDS ORDERED: morphine INJ 10 MG/ML 1ML (SYR OR VIAL) ONE (15:59)
[2020-03-29] MEDS ORDERED: fentaNYL INJECTION 100 MCG/2 ML AMP IVP ONE (16:45)
[2020-03-29] MEDS ORDERED: PROMETHAZINE INJ 25 MG/ML (PHENERGAN) AMP IVP ONE (16:45)
[2020-03-29] MEDS ORDERED: HYDROmorphone 2 MG/ML VIAL (DILAUDID) IV ONE (16:45)
[2020-03-29] MEDS ORDERED: MEPERIDINE (DEMEROL) INJ 50 MG/ML IVP ONE (16:45)
[2020-03-29] MEDS ORDERED: ONDANSETRON 4 MG/2 ML (SDV) Z0FRAN IVP PRN (16:45)
[2020-03-29] MEDS ORDERED: morphine INJ 10 MG/ML 1ML (SYR OR VIAL) IVP ONE (16:45)
--- NOTE | 2020-03-29 17:35 | NUR ---
Pt back to room from surgery, report received from SILVIA Ortiz. Reports pain 5/10 but is tolerable. Emmanuel draining clear vladislav urine to dependent drainage. Ice pack in place to abdomen. SCD's in place. Pt denies any needs at this time. Will monitor closely.
[2020-03-29] MEDS: fentaNYL INJECTION 100 MCG/2 ML AMP IV PRN ×2 (18:55→23:47)
--- NOTE | 2020-03-29 19:35 | Progress Note-Post Operative ---
Post-Operative Progess Note Surgeon (s)/Tool Room Supervisor (s) Surgeon ADAM WRIGHT DO Tool Room Supervisor: Dr. Weaver Pre-Operative Diagnosis small bowel obstruction Post-Operative Diagnosis small bowel obstruction secondary to gallstone small bowel perforation ileum Procedure & Operative Findings Date of Procedure 03/29/20 Procedure Performed/Findings exploratory laparotomy, small bowel resection Anesthesia Type gen Estimated Blood Loss Estimated blood loss (mL): minimal Specimens/Packing Specimens Removed ileum ADAM WRIGHT DO March 29, 2020 19:35
--- NOTE | 2020-03-29 21:13 | OPERATIVE REPORT ---
DATE OF SERVICE: 03/29/2020 PREOPERATIVE DIAGNOSIS: Small bowel obstruction. POSTOPERATIVE DIAGNOSIS: Small bowel obstruction secondary to gallstone, small bowel perforation ileum. SURGEON: Adam Chatman DO CPA TAX: Dr. Weaver, assisted in retraction, dissection and closure. ANESTHESIA: General. ESTIMATED BLOOD LOSS: Minimal. COMPLICATIONS: None. INDICATIONS: The patient is a 70-year-old female with radiological studies and physical exam consistent with small bowel obstruction. She understands risks and benefits of procedure and wished to proceed with procedure. Consent was signed in the chart. DESCRIPTION OF PROCEDURE: The patient was taken to the operating suite. She was prepped and draped in sterile fashion. Surgical pause was performed. Midline incision was made and the abdomen was entered encountering dilated small bowel, which was then begun to be ran and brought out through the incision. This was a time of opening the abdomen, there was a slight putrid smell in murky thin fluid that came out of the abdomen. As the small bowel was able to be ran, there was a transition point down in the pelvis, which was caused by some adhesions causing the bowel to slightly twisted within this area, also was a firm hard mass that was mobile. Also, within this area, there was an area of perforation that was approximately to be 6 mm in diameter leaking small bowel contents. This area was inflamed and reactive appearance. The ileocecal valve was identified and at this point due to the perforation, this segment of small bowel was resected, which was portion of the ileum. Hemostat was used to dissect around. The proximal portion of the small bowel and a lslo-to-dkaf anastomosis was performed using a LEONARDO-75 blue stapler. The hard mass was able to be removed within the specimen when inspected appeared to be large gallstone. A LigaSure was then used to divide the mesentery to this segment of ileum that was removed and the defect was then closed using 3-0 Vicryl in a running fashion. The small bowel was ran from the cecum all the way to the ligament of Treitz. No other palpable mass was identified. The liver had smooth edges. The field had inflammatory phlegmon around the gallbladder fossa slightly no other pathology identified. The abdomen was irrigated and suctioned with copious amounts of saline and the abdomen was then closed using 1-0 looped PDS and the skin was then closed using virgilio. The patient tolerated procedure well without any complications. She was taken to recovery room in stable condition. Job ID: [id number] DocumentID: [id number] Dictated Date: 03/29/2020 19:42:13 Vulcan Crewmember Date: 03/29/2020 21:12:24 Dictated By: ADAM CHATMAN DO
[2020-03-29] MEDS: ceFAZolin INJECTION 1,000 MG in WATER (STERILE) FOR INJECTION 10 ML IV SCH (22:07)
[2020-03-29] MEDS: metroNIDAZOLE 500MG/100ML IVPB 100 ML IV SCH (22:07)
[2020-03-30] VITALS: BP 136/79
[2020-03-30] MEDS: fentaNYL INJECTION 100 MCG/2 ML AMP IV PRN ×2 (04:29→08:04)
[2020-03-30 04:30] VITALS: BP 145/82
[2020-03-30] MEDS: NS IV 1000 ML 1,000 ML IV SCH ×3 (05:49→19:48)
[2020-03-30] MEDS: metroNIDAZOLE 500MG/100ML IVPB 100 ML IV SCH ×3 (05:50→22:09)
[2020-03-30] MEDS: ceFAZolin INJECTION 1,000 MG in WATER (STERILE) FOR INJECTION 10 ML IV SCH ×3 (05:50→23:12)
[2020-03-30 06:05] LABS: BASOPHILS % (AUTO) 0 % (0-10); EOSINOPHILS % (AUTO) 0 % (0-10); HEMATOCRIT 42 % (35-52); HEMOGLOBIN 13.6 G/DL (11.5-16.0); LYMPHOCYTES # (AUTO) 0.6 X 10^3 (1.0-4.0); LYMPHOCYTES % (AUTO) 7 % (12-44); MEAN CORPUSCULAR HEMOGLOBIN 30 PG (25-34); MEAN CORPUSCULAR HGB CONC 32 G/DL (32-36); MEAN CORPUSCULAR VOLUME 92 FL (80-99); MONOCYTES # (AUTO) 0.9 X 10^3 (0.0-1.0); MONOCYTES % (AUTO) 10 % (0-12); NEUTROPHILS # (AUTO) 7.3 X 10^3 (1.8-7.8); NEUTROPHILS % (AUTO) 83 % (42-75); PLATELET COUNT 278 10^3/uL (130-400); RED CELL DISTRIBUTION WIDTH 14.2 % (10.0-14.5); WHITE BLOOD COUNT 8.8 10^3/uL (4.3-11.0)
[2020-03-30 06:26] LABS: BUN/CREATININE RATIO 25; CALCIUM 8.5 MG/DL (8.5-10.1); CARBON DIOXIDE 23 MMOL/L (21-32); CHLORIDE 111 MMOL/L (98-107); CREATININE SERUM 0.76 MG/DL (0.60-1.30); GFR ESTIMATED > 60; GLUCOSE 92 MG/DL (70-105); POTASSIUM 3.4 MMOL/L (3.6-5.0); SODIUM 147 MMOL/L (135-145)
[2020-03-30 08:00] VITALS: BP 158/90
--- NOTE | 2020-03-30 09:29 | Progress Note - Hospitalist ---
Subjective HPI/CC On Admission Date Seen by Provider: March 30, 2020 Time Seen by Provider: 09:27 Pt is a 70yoCF with no known PMH who presented to the ER due to abdominal pain. She sates her symptoms started on 03/26. Her last BM was on 03/25. She was in the ER on 03/26 as well for nausea and vomiting that she thought was due to her hiatal hernia. Her nausea and vomiting improved but her pain continued so she returned to the ER. CT showed high grade SBO. She was admitted for NGT, pain control, and surgical consult. This morning she reports she is feeling slightly better and pain is under control. She has not had a BM or passed flatus yet. She denies any history of abdominal surgery and has never had a colonoscopy. Subjective/Events-last exam Pt reports doing well. Having pain but manageable. wants to get out of bed in chair soon. Objective Exam Vital Signs Vital Signs Date Time Temp Pulse Resp B/P (MAP) Pulse Ox O2 Delivery O2 Flow Rate FiO2 03/30/20 08:00 36.2 106 16 158/90 (112) 96 Nasal Cannula 2.00 Capillary Refill : Less Than 3 SecondsLess Than 3 Seconds General Appearance: No Apparent Distress, WD/WN Respiratory: No Accessory Muscle Use, No Respiratory Distress Gastrointestinal: Soft, Abnormal Bowel Sounds, Distended (mild), Tenderness (appropriate), Other (midline surgical wound with ABD pad in place, clean/dry) Neurologic/Psychiatric: Alert, Oriented x3, Normal Mood/Affect Results/Procedures Lab Laboratory Tests 03/30/20 05:45 Patient resulted labs reviewed. Imaging: Reviewed Imaging Report Assessment/Plan Assessment and Plan Assess & Plan/Chief Complaint High grade SBO- due to gallstone Continue NGT Pain control Surgery consult Small bowel follow through shows obstruction NPO POD #1 small bowel resection Hypokalemia Replace IV Hyperglycemia BS 92 fasting Clinical Quality Measures DVT/VTE Risk/Contraindication: Risk Factor Score Per Nursin RFS Level Per Nursing on Admit: 2=Moderate FRAN ESTES MD March 30, 2020 09:29
[2020-03-30] MEDS: POTASSIUM CL 10MEQ/50ML IVPB 50 ML IV SCH ×2 (10:10→10:11)
--- NOTE | 2020-03-30 11:42 | Physical Therapy Evaluation ---
PT Evaluation-General Medical Diagnosis Admission Date March 28, 2020 at 10:02 Medical Diagnosis: SBO Onset Date: March 28, 2020 Therapy Diagnosis Therapy Diagnosis: debility Precautions Precautions/Isolations: Fall Prevention, Standard Precautions Weight Bear Status Right Lower Extremity: Right Weight Bearing/Tolerated Left Lower Extremity: Left Weight Bearing/Tolerated Referral Physician: Kwasi Reason for Referral: Evaluation/Treatment Medical History Additional Medical History unremarkable Current History ER secondary to abdominal pain Reviewed History: Yes Social History Home: Single Level Current Living Status: Spouse Prior Prior Level of Function SCALE: Activities may be completed with or without assistive devices. 6-Ztcrnbvolx-nopzrcu completes the activity by him/herself with no assistance from a helper. 5-Set-up or Clean-up Assistance-helper sets up or cleans up; patient completes activity. [place] assists only prior to or following the activity. 4-Supervision or Touching Assistance-helper provides verbal cues and/or touching/steadying and/or contact guard assistance as patient completes activity. Assistance may be provided throughout the activity or intermittently. 3-Partial/Moderate Assistance-helper does LESS THAN HALF the effort. [place] lifts, holds or supports trunk or limbs, but provides less than half the effort. 2-Substantial/Maximal Assistance-helper does MORE THAN HALF the effort. [place] lifts or holds trunk or limbs and provides more than half the effort. 4-Thvrwjkhj-bacffj does ALL the effort. Patient does none of the effort to complete the activity. Or, the assistance of 2 or more helpers is required for the patient to complete the activity. If activity was not attempted, code reason: 7-Patient Refused. 9-Not Applicable-not attempted and the patient did not perform the activity before the current illness, exacerbation or injury. 10-Not Attempted due to Environmental Limitations-(lack of equipment, weather restraints, etc.). 88-Not Attempted due to Medical Conditions or Safety Concerns. Bed Mobility: 6 Transfers (B,C,W/C): 6 Gait: 6 Stairs: 6 Indoor Mobility (Ambulation): Independent Stairs: Independent Prior Devices Use: None PT Evaluation-Current Subjective Patient agrees to PT. Patient reports 2/10 abdominal pain Pain Numeric Pain Scale: 2 Location: Medial, Left, Lower Location Body Site: Abdomen Pain Description: Acute Objective Patient Orientation: Normal For Age Attachments: NG Tube, Oxygen, Emmanuel Catheter, IV ROM/Strength ROM Lower Extremities bilateral LE WFL Strength Lower Extremities 4/5 grossly bilateral LE Integumentary/Posture Integumentary refer to nursing notes Bowel Incontinence: No Bladder Incontinence: Emmanuel Cath Posture WFL Neuromuscular (Tone, Coordination, Reflexes) grossly intact Sensory Vision: Functional Hearing: Functional Sensation Right Lower Extremit: Intact Sensation Left Lower Extremity: Intact Transfers Roll Left to Right (QC): 6 Sit to Lying (QC): 6 Lying to Sitting/Side of Bed(Q: 6 Sit to Stand (QC): 6 Chair/Lsw-tv-Wiqyk Xfer(QC): 6 Gait Does the Patient Walk?: Yes Mode of Locomotion: Walk Anticipated Mode of Locomotion: Walk Walk 10 feet (QC): 6 Walk 50 ft with 2 Turns(QC): 6 Walk 150 ft (QC): 6 Distance: 600' Gait Assistive Device: FWW Comments/Gait Description steady, functional gait sequence Balance Sitting Static: Normal Sitting Dynamic: Normal Standing Static: Normal Standing Dynamic: Normal Assessment/Needs 70 y.o. female, will be seen x 2 sessions to ensure increase in mobility . Nursing instructed to have patient ambulate PRN in [facility] as well. Rehab Potential: Good PT Short Term Goals Short Term Goals Time Frame: March 31, 2020 Roll Left & Right: 6 Sit to lyin Lying to sitting on side of be: 6 Sit to stand: 6 Chair/uel-st-qzyet transfer: 6 Toilet transfer: 6 Walk 10 feet: 6 Walk 50 feet with two turns: 6 Walk 150 feet: 6 PT Plan Treatment/Plan Treatment Plan: Continue Plan of Care Treatment Plan: Functional Activity Ja, Functional Strength, Gait, Transfers Treatment Duration: March 31, 2020 Frequency: 2 times per week Estimated Hrs Per Day: .25 hour per day Patient and/or Family Agrees t: Yes Discharge Recommendations Therapy Discharge Recommendati: Home & Family Time/GCodes Time In: 1051 Time Out: 1111 Total Billed Treatment Time: 20 Total Billed Treatment 1 visit EVLow 20 min CHEYENNE VEE PT March 30, 2020 11:42
[2020-03-30 12:00] VITALS: BP 144/82
--- NOTE | 2020-03-30 13:32 | Progress Note - Surgery ---
Subjective Date Seen by a Provider: March 30, 2020 Time Seen by a Provider: 13:29 Subjective/Events-last exam Feeling better today than yesterday. Ng tube in place. Walked some. Pain controlled. No flatus or bm. NPO. Denies fever sweats chills shortness of breath or chest pain. Objective Exam Vital Signs Date Time Temp Pulse Resp B/P (MAP) Pulse Ox O2 Delivery O2 Flow Rate FiO2 03/30/20 10:58 Nasal Cannula 1.00 03/30/20 08:30 Nasal Cannula 1.00 03/30/20 08:30 Nasal Cannula 1.00 03/30/20 08:00 36.2 106 16 158/90 (112) 96 Nasal Cannula 2.00 03/30/20 04:30 36.7 109 19 145/82 (103) 97 Nasal Cannula 2.00 03/30/20 00:00 36.2 108 19 136/79 (98) 97 Nasal Cannula 3.00 03/29/20 20:45 97 Nasal Cannula 3.00 03/29/20 20:08 36.2 103 16 125/64 (84) 97 Nasal Cannula 3.00 03/29/20 18:20 36.2 98 18 133/69 (90) 95 Nasal Cannula 3.00 03/29/20 17:30 36.3 20 130/64 (86) 100 Nasal Cannula 3 03/29/20 17:30 Nasal Cannula 3 03/29/20 17:28 36.3 90 18 131/89 (103) 96 Nasal Cannula 3.00 03/29/20 17:20 20 134/68 (90) 98 Nasal Cannula 3 03/29/20 17:15 Nasal Cannula 3 03/29/20 17:10 20 130/68 (88) 98 OxyMask 3 03/29/20 17:00 OxyMask 4 03/29/20 17:00 20 136/60 (85) 98 OxyMask 5 03/29/20 16:50 20 130/88 (102) 98 OxyMask 4 03/29/20 16:45 OxyMask 4 03/29/20 16:40 20 143/86 (105) 99 OxyMask 4 03/29/20 16:30 20 111/84 (93) 99 OxyMask 6 03/29/20 16:30 OxyMask 6 03/29/20 16:25 36.3 20 126/72 (90) 100 OxyMask 6 03/29/20 16:25 OxyMask 6 I & O 03/30/20 07:00 Intake Total 2230 ml Output Total 1575 ml Balance 655 ml Capillary Refill : Less Than 3 SecondsLess Than 3 Seconds General Appearance: No Apparent Distress, WD/WN HEENT: PERRL/EOMI, Moist Mucous Membranes; No Scleral Icterus (L), No Scleral Icterus (R); Other (NGT in place) Neck: Normal Inspection, Supple Respiratory: Chest Non Tender, No Accessory Muscle Use, No Respiratory Distress Cardiovascular: Regular Rate, Rhythm, No Murmur Gastrointestinal: soft, distended; No guarding, No rebound; tenderness (incisional) Extremity: No Calf Tenderness, No Pedal Edema Neurologic/Psychiatric: Alert, Oriented x3, Normal Mood/Affect Skin: Normal Color, Warm/Dry Lymphatic: No Adenopathy Results Lab Laboratory Tests 03/30/20 05:45: White Blood Count 8.8, Red Blood Count 4.61, Hemoglobin 13.6, Hematocrit 42, Mean Corpuscular Volume 92, Mean Corpuscular Hemoglobin 30, Mean Corpuscular Hemoglobin Concent 32, Red Cell Distribution Width 14.2, Platelet Count 278, Mean Platelet Volume 10.0, Neutrophils (%) (Auto) 83H, Lymphocytes (%) (Auto) 7L , Monocytes (%) (Auto) 10, Eosinophils (%) (Auto) 0, Basophils (%) (Auto) 0, Neutrophils # (Auto) 7.3, Lymphocytes # (Auto) 0.6L, Monocytes # (Auto) 0.9, Eosinophils # (Auto) 0.0, Basophils # (Auto) 0.0, Sodium Level 147H, Potassium Level 3.4L, Chloride Level 111H, Carbon Dioxide Level 23, Anion Gap 13, Blood Urea Nitrogen 19H, Creatinine 0.76, Estimat Glomerular Filtration Rate > 60, BUN/Creatinine Ratio 25, Glucose Level 92, Calcium Level 8.5 Microbiology 03/28/20 MRSA Screen - Final, Complete MRSA not isolated Assessment/Plan Assessment/Plan Assessment/Plan abdominal pain diffuse nausea and vomiting small bowel obstruction. gallstone ileus small bowel perforation s/p exploratory laparotomy with small bowel resection hypokalemia- replace ng tube once await bowel function and start clears npo iv hydration kimble to monitor urine output pain control IS Lovenox/scd's for dvt prophylaxis Clinical Quality Measures DVT/VTE Risk/Contraindication: Risk Factor Score Per Nursin RFS Level Per Nursing on Admit: 2=Moderate ADAM WRIGHT DO March 30, 2020 13:32
--- NOTE | 2020-03-30 14:55 | Anesthesia-General Post-Op ---
General Patient Condition Mental Status/LOC: Same as Preop Cardiovascular: Satisfactory Nausea/Vomiting: Absent Respiratory: Satisfactory Pain: Controlled Complications: Absent Post Op Complications Complications None Follow Up Care/Instructions Patient Instructions None needed. Anesthesia/Patient Condition Patient Condition Patient is doing well, no complaints, stable vital signs, no apparent adverse anesthesia problems. JORGE MARTINEZ DO March 30, 2020 14:55
--- NOTE | 2020-03-30 14:56 | Occupational Therapy Eval ---
OT Evaluation-General/PLF Medical Diagnosis Admission Date March 28, 2020 at 10:02 Medical Diagnosis: SBO/resection Onset Date: March 28, 2020 Therapy Diagnosis Therapy Diagnosis: Weakness/decreased ADL skills Precautions Precautions/Isolations: Fall Prevention, Standard Precautions Weight Bear Status Weight Bearing Restriction: Weight Bearing/Tolerated Referral Physician: Kwasi Referral Reason: Activity Tolerance, Self Care, Evaluation/Treatment, Strengthening/ROM Medical History Current History Pt. had SBO and so underwent small bowel resection secondary to gall stone. Pt. currently has NG tube, IV, and catheter placed. Reviewed History: Yes Social History Home: Single Level Current Living Status: Spouse Entry Into Home: Level Entry ADL-Prior Level of Function SCALE: Activities may be completed with or without assistive devices. 7-Bcruixhetr-lnsoenj completes the activity by him/herself with no assistance from a helper. 5-Set-up or Clean-up Assistance-helper sets up or cleans up; patient completes activity. [place] assists only prior to or following the activity. 4-Supervision or Touching Assistance-helper provides verbal cues and/or touching/steadying and/or contact guard assistance as patient completes activity. Assistance may be provided throughout the activity or intermittently. 3-Partial/Moderate Assistance-helper does LESS THAN HALF the effort. [place] lifts, holds or supports trunk or limbs, but provides less than half the effort. 2-Substantial/Maximal Assistance-helper does MORE THAN HALF the effort. [place] lifts or holds trunk or limbs and provides more than half the effort. 7-Tecwmkvbe-dajepz does ALL the effort. Patient does none of the effort to complete the activity. Or, the assistance of 2 or more helpers is required for the patient to complete the activity. If activity was not attempted, code reason: 7-Patient Refused. 9-Not Applicable-not attempted and the patient did not perform the activity before the current illness, exacerbation or injury. 10-Not Attempted due to Environmental Limitations-(lack of equipment, weather restraints, etc.). 88-Not Attempted due to Medical Conditions or Safety Concerns. ADL PLOF Comments Pt. was fully independent with daily tasks previous to this hospitalization. Self Care: Independent Functional Cognition: Independent DME/Equipment: Bath Chair, Shower DME/Equipment Comments Pt. does not have a walker at home. Drive Self: Yes OT Current Status Subjective No pain reported. Pt. states that she is feeling good. Appearance Pt. up in chair. Agrees to work with OT. Mental Status/Objective Patient Orientation: Person, Place, Time, Situation Attachments: Emmanuel Catheter, IV, NG Tube Current Upper Extremity ROM WFL ADL-Treatment On/Off Footwear (QC): 6 Pt. verbalizes that she showered yesterday on her own previous to surgery. Pt. demonstrates ability to bring bilateral LE up to her to doff/don slipper socks with no difficulty. Pt. reports that dressing self in shorts/pants will be no difficulty due to flexibility. Pt. reports that she is feeling well, and wants to go home as soon as she is able. Pt. agrees to ambulate and is able to ambulate with SBA using walker. Ambulates approximately 300 feet with no difficulty. Pt. states that she was not using walker at home, and does not know if she will want one when she discharges. Pt. transferred to bed with SBA after ambulation. All needs met. No further OT needs at this time, as pt. demonstrated ability to dress LE, and ambulate/transfer with SBA. Pt. reports that she has a supportive family and system at home that can assist. Education OT Patient Education: Correct positioning, Modified ADL techniques, Progress toward Goal/Update tx plan, Purpose of tx/functional activities, Reviewed precautions, Rehab process, Transfer techniques Teaching Recipient: Patient Teaching Methods: Demonstration, Discussion Response to Teaching: Verbalize Understanding, Return Demonstration OT Caddy Master Goals Detention Goals Time Frame: March 30, 2020 Additional Goals: 1-Demonstrate ADL Tasks, 2-Verbalize Understanding, 3- ImproveStrength/Ja 1=Demonstrate adherence to instructed precautions during ADL tasks. 2=Patient will verbalize/demonstrate understanding of assistive devices/modifications for ADL. 3=Patient will improve strength/tolerance for activity to enable patient to perform ADL's. No further OT needs warranted at this time. OT Education/Plan Problem List/Assessment Assessment: No Skilled OT Needs ID'd Discharge Recommendations Plan/Recommendations: Discharge/Goals Met Therapy Discharge Recommendati: Home & Family Treatment Plan/Plan of Care Treatment,Training & Education: Yes Plan of Care: OTHER (No further OT goals) Treatment Duration: March 30, 2020 Frequency: 1 time per week Estimated Hrs Per Day: .5 hour per day Agreement: Yes Rehab Potential: Good Time/GCodes Start Time: 13:30 Stop Time: 13:57 Total Time Billed (hr/min): 27 Billed Treatment Time 1, EVL x 10minutes, FA x 17minutes RONEL NICOLAS OT March 30, 2020 14:56
[2020-03-30 16:11] VITALS: BP 124/79
[2020-03-30] MEDS: ENOXAPARIN 40 MG/0.4 ML (LOVENOX) SYR SC SCH (16:56)
[2020-03-30 19:35] VITALS: BP 132/70
[2020-03-31 00:18] VITALS: BP 144/83
[2020-03-31] MEDS: NS IV 1000 ML 1,000 ML IV SCH ×4 (02:13→22:16)
[2020-03-31 04:31] VITALS: BP 147/82
[2020-03-31] MEDS: metroNIDAZOLE 500MG/100ML IVPB 100 ML IV SCH ×3 (05:07→22:16)
[2020-03-31] MEDS: ceFAZolin INJECTION 1,000 MG in WATER (STERILE) FOR INJECTION 10 ML IV SCH ×3 (06:16→22:16)
[2020-03-31 08:23] VITALS: BP 127/69
[2020-03-31] MEDS: PANTOPRAZOLE 40 MG (PROTONIX) VIAL IV SCH (08:50)
[2020-03-31] MEDS ORDERED: VANCOMYCIN INJECTION 0.1 MG in NS (IVPB) 250 ML IV SCH (09:45)
--- NOTE | 2020-03-31 09:53 | Physical Therapy Progress Note ---
Therapy Progress Note Patient is up ambulating in hallway with nursing staff without difficulty. PT to dismiss patient from services and nursing instructed to continue with ambulating patient. CHEYENNE VEE PT March 31, 2020 09:53
--- NOTE | 2020-03-31 10:14 | Progress Note - Hospitalist ---
Subjective HPI/CC On Admission Date Seen by Provider: March 31, 2020 Time Seen by Provider: 10:11 Pt is a 70yoCF with no known PMH who presented to the ER due to abdominal pain. She sates her symptoms started on 03/26. Her last BM was on 03/25. She was in the ER on 03/26 as well for nausea and vomiting that she thought was due to her hiatal hernia. Her nausea and vomiting improved but her pain continued so she returned to the ER. CT showed high grade SBO. She was admitted for NGT, pain control, and surgical consult. This morning she reports she is feeling slightly better and pain is under control. She has not had a BM or passed flatus yet. She denies any history of abdominal surgery and has never had a colonoscopy. Subjective/Events-last exam Pt reports doing well. pain controlled. No Bm or flatus yet. Objective Exam Vital Signs Vital Signs Date Time Temp Pulse Resp B/P (MAP) Pulse Ox O2 Delivery O2 Flow Rate FiO2 03/31/20 08:23 36.8 109 18 127/69 (88) 92 Room Air 03/30/20 12:00 1.00 Capillary Refill : Less Than 3 SecondsLess Than 3 Seconds General Appearance: No Apparent Distress, WD/WN Respiratory: Lungs Clear, No Respiratory Distress Cardiovascular: Regular Rate, Rhythm, No Murmur Gastrointestinal: Soft, Tenderness (appropriate) Neurologic/Psychiatric: Alert, Oriented x3, Normal Mood/Affect Results/Procedures Lab Patient resulted labs reviewed. Imaging: Reviewed Imaging Report Assessment/Plan Assessment and Plan Assess & Plan/Chief Complaint High grade SBO- due to gallstone Doing well Continue NGT Pain control Surgery consult Small bowel follow through shows obstruction NPO POD #2 small bowel resection Hypokalemia repleted yesterday Hyperglycemia BS 92 fasting Clinical Quality Measures DVT/VTE Risk/Contraindication: Risk Factor Score Per Nursin RFS Level Per Nursing on Admit: 2=Moderate FRAN ESTES MD March 31, 2020 10:13
--- NOTE | 2020-03-31 10:46 | NUR ---
PHARMACY TO DOSE VANCOMYCIN: WEIGHT 70.4 KG, CrCl 48.5; 20MG/KG X 70.4KG = 1408 ~ 1250MG LOADING DOSE; 15MG/KG X 70.4KG = 1056 ~ 1G MAINTENANCE DOSE Q24H; VANCOMYCIN TROUGH DUE 04/03 @ 1000, IF TROUGH >20, HOLD DOSE AND NOTIFY PHARMACY FOR ADJUSTMENTS
[2020-03-31] MEDS ORDERED: VANCOMYCIN 1250 MG/NS 250 ML IVPB IV NR ×2 (11:00)
[2020-03-31 12:34] VITALS: BP 106/72
--- NOTE | 2020-03-31 14:09 | Progress Note - Surgery ---
Subjective Date Seen by a Provider: March 31, 2020 Time Seen by a Provider: 14:08 Subjective/Events-last exam Patient sitting in chair. Pain controlled. No flatus or bowel movement. Denies any new complaints. Objective Exam Vital Signs Date Time Temp Pulse Resp B/P (MAP) Pulse Ox O2 Delivery O2 Flow Rate FiO2 03/31/20 12:34 36.5 82 19 106/72 (83) 98 Room Air 03/31/20 08:23 36.8 109 18 127/69 (88) 92 Room Air 03/31/20 04:31 36.6 105 18 147/82 (103) 90 Room Air 03/31/20 00:18 36.8 111 18 144/83 (103) 92 Room Air 03/30/20 20:50 Room Air 03/30/20 19:35 36.2 112 15 132/70 (90) 92 Room Air 03/30/20 17:00 106 94 Room Air 03/30/20 16:11 35.8 112 17 124/79 (94) 92 I & O 03/31/20 07:00 Intake Total 1110 ml Output Total 1875 ml Balance -765 ml Capillary Refill : Less Than 3 SecondsLess Than 3 Seconds General Appearance: No Apparent Distress, WD/WN HEENT: PERRL/EOMI, Moist Mucous Membranes; No Scleral Icterus (L), No Scleral Icterus (R); Other (NGT in place) Neck: Normal Inspection, Supple Respiratory: Chest Non Tender, No Accessory Muscle Use, No Respiratory Distress Cardiovascular: Regular Rate, Rhythm, No Murmur Gastrointestinal: soft, distended; No guarding, No rebound; tenderness (incisional) Extremity: No Calf Tenderness, No Pedal Edema Neurologic/Psychiatric: Alert, Oriented x3, Normal Mood/Affect Skin: Normal Color, Warm/Dry Lymphatic: No Adenopathy Results Lab Microbiology 03/28/20 MRSA Screen - Final, Complete MRSA not isolated Assessment/Plan Assessment/Plan Assessment/Plan abdominal pain diffuse nausea and vomiting small bowel obstruction. gallstone ileus small bowel perforation s/p exploratory laparotomy with small bowel resection ng tube once await bowel function and start clears npo iv hydration kimble to monitor urine output pain control IS Lovenox/scd's for dvt prophylaxis Clinical Quality Measures DVT/VTE Risk/Contraindication: Risk Factor Score Per Nursin RFS Level Per Nursing on Admit: 2=Moderate ADAM WRIGHT DO March 31, 2020 14:09
[2020-03-31] MEDS: ENOXAPARIN 40 MG/0.4 ML (LOVENOX) SYR SC SCH (15:31)
[2020-03-31 16:00] VITALS: BP 157/80
--- NOTE | 2020-03-31 19:24 | NUR ---
UP TO BATHROOM. VOIDED 100 CC DARK JALEN URINE.
[2020-03-31 20:37] VITALS: BP 156/78
[2020-04-01] VITALS: BP 146/75
[2020-04-01 06:18] LABS: HEMOGLOBIN 11.4 G/DL (11.5-16.0); MEAN PLATELET VOLUME 9.9 FL (7.4-10.4); RED CELL DISTRIBUTION WIDTH 14.5 % (10.0-14.5); WHITE BLOOD COUNT 12.6 10^3/uL (4.3-11.0)
[2020-04-01] MEDS: metroNIDAZOLE 500MG/100ML IVPB 100 ML IV SCH ×3 (06:37→22:34)
[2020-04-01 06:38] LABS: ALANINE AMINOTRANSFERASE 10 U/L (0-55); ALBUMIN 2.4 GM/DL (3.2-4.5); ALKALINE PHOSPHATASE 63 U/L (40-136); BILIRUBIN,TOTAL 0.5 MG/DL (0.1-1.0); BUN/CREATININE RATIO 28; CARBON DIOXIDE 22 MMOL/L (21-32); CHLORIDE 119 MMOL/L (98-107); CREATININE SERUM 0.72 MG/DL (0.60-1.30); GFR ESTIMATED > 60; GLUCOSE 90 MG/DL (70-105); MAGNESIUM 2.1 MG/DL (1.6-2.4); POTASSIUM 3.1 MMOL/L (3.6-5.0); SODIUM 155 MMOL/L (135-145); TOTAL PROTEIN 5.1 GM/DL (6.4-8.2)
[2020-04-01] MEDS: ceFAZolin INJECTION 1,000 MG in WATER (STERILE) FOR INJECTION 10 ML IV SCH ×3 (06:38→22:34)
[2020-04-01] MEDS: NS IV 1000 ML 1,000 ML IV SCH (06:38)
[2020-04-01 08:00] VITALS: BP 153/79
[2020-04-01] MEDS: PANTOPRAZOLE 40 MG (PROTONIX) VIAL IV SCH (08:51)
--- NOTE | 2020-04-01 11:36 | Progress Note - Hospitalist ---
Subjective HPI/CC On Admission Date Seen by Provider: April 01, 2020 Time Seen by Provider: 11:31 Pt is a 70yoCF with no known PMH who presented to the ER due to abdominal pain. She sates her symptoms started on 03/26. Her last BM was on 03/25. She was in the ER on 03/26 as well for nausea and vomiting that she thought was due to her hiatal hernia. Her nausea and vomiting improved but her pain continued so she returned to the ER. CT showed high grade SBO. She was admitted for NGT, pain control, and surgical consult. This morning she reports she is feeling slightly better and pain is under control. She has not had a BM or passed flatus yet. She denies any history of abdominal surgery and has never had a colonoscopy. Subjective/Events-last exam Pt reports doing well. Would like some sprite. Otherwise no complaints. No Flatus or BM yet. Objective Exam Vital Signs Vital Signs Date Time Temp Pulse Resp B/P (MAP) Pulse Ox O2 Delivery O2 Flow Rate FiO2 04/01/20 08:19 Room Air 04/01/20 08:00 36.0 91 20 153/79 (103) 93 03/30/20 12:00 1.00 Capillary Refill : Less Than 3 SecondsLess Than 3 Seconds General Appearance: No Apparent Distress, WD/WN HEENT: Other (NGT in place) Respiratory: Lungs Clear, No Respiratory Distress Cardiovascular: Regular Rate, Rhythm, No Murmur Gastrointestinal: Soft, Abnormal Bowel Sounds (quiet), Tenderness (appropriate) Neurologic/Psychiatric: Alert, Oriented x3 Results/Procedures Lab Laboratory Tests 04/01/20 05:43 Patient resulted labs reviewed. Imaging: Reviewed Imaging Report Assessment/Plan Assessment and Plan Assess & Plan/Chief Complaint High grade SBO- due to gallstone Doing well Continue NGT Pain control Surgery consult Small bowel follow through showed obstruction NPO except ice chips POD #3 small bowel resection Hypokalemia replace, check mag but likely due to NGT and GI losses Hyperglycemia- resolved Hypernatremia switch to DR1/2NS Clinical Quality Measures DVT/VTE Risk/Contraindication: Risk Factor Score Per Nursin RFS Level Per Nursing on Admit: 2=Moderate FRAN ESTES MD April 01, 2020 11:36
[2020-04-01] MEDS: VANCOMYCIN 1 GM/NS 250 ML IVPB IV SCH ×2 (11:49)
[2020-04-01 12:06] VITALS: BP 162/80
[2020-04-01] MEDS: POTASSIUM CL 10MEQ/50ML IVPB 50 ML IV SCH ×4 (12:51→17:58)
[2020-04-01] MEDS: D5 1/2 NS 1000 ML IV SOLUTION 1,000 ML IV SCH (12:52)
--- NOTE | 2020-04-01 13:34 | Progress Note - Surgery ---
Subjective Time Seen by a Provider: 11:07 Subjective/Events-last exam Pt seen and examined, states no nausea or vomiting but the NGT is bothering her. She still has not had any flatus. Review of Systems General: Fatigue Pulmonary: No Dyspnea, No Cough Cardiovascular: No: Chest Pain, Palpitations Gastrointestinal: Abdominal Pain (minimal at incision); No: Nausea, Vomiting Objective Exam Vital Signs Date Time Temp Pulse Resp B/P (MAP) Pulse Ox O2 Delivery O2 Flow Rate FiO2 04/01/20 12:06 36.6 92 20 162/80 (107) 96 Room Air 04/01/20 08:19 Room Air 04/01/20 08:00 36.0 91 20 153/79 (103) 93 Room Air 04/01/20 00:00 36.0 89 18 146/75 (98) 94 Room Air 03/31/20 20:37 36.6 108 20 156/78 (104) 93 Room Air 03/31/20 20:00 Room Air 03/31/20 16:00 36.2 107 20 157/80 (105) 92 Room Air l I & O 04/01/20 06:59 Intake Total 1275.5 ml Output Total 1625 ml Balance -349.5 ml Capillary Refill : Less Than 3 SecondsLess Than 3 Seconds General Appearance: No Apparent Distress, WD/WN HEENT: Other (NGT in place) Respiratory: Lungs Clear, No Respiratory Distress Cardiovascular: Regular Rate, Rhythm, No Murmur Gastrointestinal: soft, distended; No guarding, No rebound; tenderness (incisional) Extremity: No Calf Tenderness, No Pedal Edema Neurologic/Psychiatric: Alert, Oriented x3 Results Lab Laboratory Tests 04/01/20 05:43: White Blood Count 12.6H, Red Blood Count 3.94L, Hemoglobin 11.4L, Hematocrit 37, Mean Corpuscular Volume 93, Mean Corpuscular Hemoglobin 29, Mean Corpuscular Hemoglobin Concent 31L, Red Cell Distribution Width 14.5, Platelet Count 279, Mean Platelet Volume 9.9, Sodium Level 155H, Potassium Level 3.1L, Chloride Level 119H, Carbon Dioxide Level 22, Anion Gap 14, Blood Urea Nitrogen 20H, Creatinine 0.72, Estimat Glomerular Filtration Rate > 60, BUN/Creatinine Ratio 28, Glucose Level 90, Calcium Level 8.0L, Corrected Calcium 9.3, Magnesium Level 2.1, Total Bilirubin 0.5, Aspartate Amino Transf (AST/SGOT) 16, Alanine Aminotransferase (ALT/SGPT) 10, Alkaline Phosphatase 63, Total Protein 5.1L, Albumin 2.4L Microbiology 03/28/20 MRSA Screen - Final, Complete MRSA not isolated Assessment/Plan Assessment/Plan Assessment/Plan S/P SBR Continue NGT until pt has some bowel function; then can start clears. Cont. IV fluids, kimble to monitor urine output, pain control. Encourage IS and ambulati on. Lovenox/scd's for dvt prophylaxis Clinical Quality Measures DVT/VTE Risk/Contraindication: Risk Factor Score Per Nursin RFS Level Per Nursing on Admit: 2=Moderate LUDA REYNOSO DO April 01, 2020 13:34
[2020-04-01 16:26] VITALS: BP 158/74
[2020-04-01] MEDS: ENOXAPARIN 40 MG/0.4 ML (LOVENOX) SYR SC SCH (16:49)
[2020-04-02] VITALS: BP 150/77
[2020-04-02] MEDS: D5 1/2 NS 1000 ML IV SOLUTION 1,000 ML IV SCH ×2 (01:29→09:24)
[2020-04-02] MEDS: metroNIDAZOLE 500MG/100ML IVPB 100 ML IV SCH ×2 (06:16→13:28)
[2020-04-02] MEDS: ceFAZolin INJECTION 1,000 MG in WATER (STERILE) FOR INJECTION 10 ML IV SCH ×2 (06:16→13:28)
[2020-04-02 08:00] VITALS: BP 157/72
[2020-04-02] MEDS: PANTOPRAZOLE 40 MG (PROTONIX) VIAL IV SCH (09:24)
[2020-04-02] MEDS: VANCOMYCIN 1 GM/NS 250 ML IVPB IV SCH ×2 (11:16)
--- NOTE | 2020-04-02 12:02 | Progress Note - Surgery ---
Subjective Time Seen by a Provider: 11:28 Subjective/Events-last exam Pt seen and examined, states she is doing really well and wants NGT out. She is passing gas and had BMs. Review of Systems General: No Chills, No Night Sweats Pulmonary: No Dyspnea, No Cough Cardiovascular: No: Chest Pain Gastrointestinal: Abdominal Pain (minimal); No: Nausea, Vomiting Objective Exam Vital Signs Date Time Temp Pulse Resp B/P (MAP) Pulse Ox O2 Delivery O2 Flow Rate FiO2 04/02/20 08:35 95 Room Air 04/02/20 08:00 36.6 82 20 157/72 (100) 94 Room Air 04/02/20 00:00 36.6 81 20 150/77 (101) 94 Room Air 04/01/20 20:10 94 Room Air 04/01/20 16:26 36.0 90 16 158/74 (102) 95 Room Air 04/01/20 12:06 36.6 92 20 162/80 (107) 96 Room Air I & O 04/02/20 07:00 Intake Total 1190 ml Output Total 1900 ml Balance -710 ml Capillary Refill : Less Than 3 SecondsLess Than 3 Seconds General Appearance: No Apparent Distress, WD/WN HEENT: Other (NGT in place) Respiratory: Lungs Clear, No Respiratory Distress Cardiovascular: Regular Rate, Rhythm, No Murmur Gastrointestinal: soft, distended (minimal); No guarding, No rebound; tenderness (incisional, improved compared to yesterday) Extremity: No Calf Tenderness, No Pedal Edema Neurologic/Psychiatric: Alert, Oriented x3 Results Lab Microbiology 03/28/20 MRSA Screen - Final, Complete MRSA not isolated Assessment/Plan Assessment/Plan Assessment/Plan S/P SBR D/C NGT and can start soft diet. Cont. IS and ambulation, pt can go home if she tolerates diet. Clinical Quality Measures DVT/VTE Risk/Contraindication: Risk Factor Score Per Nursin RFS Level Per Nursing on Admit: 2=Moderate LUDA REYNOSO DO April 02, 2020 12:02
--- NOTE | 2020-04-02 12:22 | Discharge Inst-Simple/Standard ---
Discharge Inst-Standard Patient Instructions/Follow Up Plan of Care/Instructions/FU: Please continue to take your medications as written. Please follow up with Dr Ansari in the next week and with Dr Chatman as scheduled. Activity as Tolerated: Yes Discharge Diet: Semi-Solid Diet Return to The Hospital For: Abdominal pain, nausea, vomiting, fever, no gas or BM for 24 hours, if you feel you are getting worse. Planned Outpatient Orders/Ref. Pneu Vac Indicated: Yes FRAN ESTES MD April 02, 2020 12:22
--- NOTE | 2020-04-02 12:22 | Discharge Summary ---
Diagnosis/Chief Complaint Date of Admission March 28, 2020 at 10:02 Date of Discharge Discharge Date: April 02, 2020 Admission Diagnosis [facility] Jovanny Pena MD Discharge Summary Discharge Physical Exam Allergies: Coded Allergies: No Known Drug Allergies (Unverified , 03/26/20) Vitals & I&Os Vital Signs Date Time Temp Pulse Resp B/P (MAP) Pulse Ox O2 Delivery O2 Flow Rate FiO2 04/02/20 08:35 95 Room Air 04/02/20 08:00 36.6 82 20 157/72 (100) 03/30/20 12:00 1.00 Hospital Course Labs (last 24 hrs) Microbiology 03/28/20 MRSA Screen - Final, Complete MRSA not isolated Patient resulted labs reviewed. Imaging: Reviewed Imaging Report Discharge Home Medications: Active Scripts Active Reported Aspirin EC (Aspirin) 325 Mg Tablet.dr 325 Mg PO Q8H PRN Instructions to patient/family Please see electronic discharge instructions given to patient. Clinical Quality Measures DVT/VTE Risk/Contraindication: Risk Factor Score Per Nursin RFS Level Per Nursing on Admit: 2=Moderate FRAN ESTES MD April 02, 2020 12:22
--- NOTE | 2020-04-02 14:08 | NUR ---
WALKED IN [place], [place], HAD SMALL BROWN STOOL, DENIES PAIN OR NAUSEA AFTER SOFT DIET, ABD DRESSING CHANGED NO REDNESS OR DRAINAGE, [place]ILL[place] INTACT, ISLAND DRESSING APPLIED. DISCHARGE INSTRUCTIONS GIVEN, VERBALIZED UNDERSTANDING,
[2020-04-02 15:30] VITALS: BP 157/72
[2020-04-03] MEDS ORDERED: TROUGH ORDER-PHARMACY XX NR (10:00)
== END 2020-04-02 15:30 | disposition home or self-care (01) | DRG 329 ==
LOC: EDUNIT# 18:05 → ER 18:06 → 4TH 21:00 → UNDOADMOB 21:00 → 4TH 21:53 → INTOOBSV 03-28 10:02 → OBSVTOIN 03-28 10:02 → 4TH 03-31 09:45 → UNDODISIN 04-02 15:30
PROVIDERS: ADMIT Internal Medicine; ATTEND Internal Medicine
PROC: 0D9670Z Drainage of Stomach with Drainage Device, Via Natural or Artificial Opening (ICD-10-PCS; principal; 2020-03-28)
PROC: 0DBB0ZZ Excision of Ileum, Open Approach (ICD-10-PCS; 2020-03-29)
DX: K56.3 Gallstone ileus (principal); K63.1 Perforation of intestine (nontraumatic); K81.0 Acute cholecystitis; E87.6 Hypokalemia; R73.9 Hyperglycemia, unspecified; K44.9 Diaphragmatic hernia without obstruction or gangrene; E87.0 Hyperosmolality and hypernatremia
CPT/HCPCS: 36415; 74176; 74250; 80048; 80053; 82150; 83690; 83735; 85025; 85027; 87081; 88307; 94664; 96360; G0378